=== PATIENT | male | born 1940 | race Caucasian/White ===

== ENCOUNTER 2016-12-30 09:16 | Emergency (ER) | payer OTHER ==
[~2016-12-30] VITALS: Ht 185.4 cm; Wt 87.7 kg
[~2016-12-30 09:16] MED LIST: ANT25 PO; ASPI325T39 PO; CITA10TA4 PO; LISI-729 PO; MULTTAB5 PO; OMEG-112 PO; ROSU5TAB PO
[2016-12-30 09:25] VITALS: TEMP 36.8; Ht 185.4 cm; Wt 87.7 kg
[2016-12-30 09:31] VITALS: O2SAT 98
--- NOTE | 2016-12-30 09:49 | EMERGENCY ROOM VISIT NOTE ---
History Report prepared by Zoay: Jonah Willoughby Under the Supervision of: Dr. Daniel Monroe M.D. First contact with patient: 09:33 Chief Complaint: CHEST PAIN Stated Complaint: CHEST PAINS/LEFT ARM PAIN Nursing Triage Summary: pt c/o left chest pain described as achy started at 0500 this am awoke him from sleep. radiates to left arm and jaw. now reports pain is okay. reports has chronic pain in left arm. pt reports he is left handed and worked in [employer] using that arm constantly. pain intensifies with exertion. denies any n/v. reports he moved his bowels 3 x this am reports this is normal though. has hx of prostate ca History of Present Illness The patient is a 76 year old male who presents to the Emergency Room with complaints of resolved left-sided chest pressure that started when he woke up at approximately 0500 this morning. The patient also has some pain in his left shoulder, which is similar to past musculoskeletal pain he has experienced. The patient is not currently feeling the chest pain which resolved on its own. He denies shortness of breath. The patient has a history of indigestion. He did not have anything to eat today. The patient denies any personal cardiac history but does have some family history. He had a negative stress test five years ago. As per his , the patient's blood pressure was 160/88 this morning. He does have a history of hypertension. He denies any history of diabetes. He was never a smoker. The patient has a history of prostate cancer. He moved here from [place] 13 years ago. Source of History: patient, spouse/significant other Onset: 0500 this morning Position: chest (left) Quality: pressure Timing: resolved Associated Symptoms: No SOB Review of Systems See HPI for pertinent positives & negatives. A total of 10 systems reviewed and were otherwise negative. Past Medical & Surgical Medical Problems: (1) HTN (hypertension) (2) Musculoskeletal chest pain Surgical Problems: (1) H/O colonoscopy (2) H/O prostatectomy Family History Cancer Hypertension Social History Smoking Status: Never Smoker Alcohol Use: occasionally Marital Status: Housing Status: lives with significant other Occupation Status: retired Current/Historical Medications Scheduled Aspirin (Aspirin Ec), 325 MG PO DAILY Citalopram Hydrobromide (Citalopram Hydrobromide), 10 MG PO DAILY Lisinopril (Zestril), 10 MG PO DAILY Multiple Vitamins W/ Minerals (Centrum), 1 TABLET PO DAILY [place]-6-Npnd Ethyl Esters ([place]-3), 1 CAP PO TID Rosuvastatin Calcium (Crestor), 5 MG PO DAILY Allergies Coded Allergies: Statins (Verified Allergy, Unknown, MUSCLE ACHES, 12/30/16) Physical Exam Vital Signs Date Time Temp Pulse Resp B/P Pulse Ox O2 Delivery O2 Flow Rate FiO2 12/30/16 11:23 80 16 145/90 96 Room Air 12/30/16 10:42 83 22 133/78 97 Room Air 12/30/16 10:18 77 12/30/16 09:31 98 Room Air 12/30/16 09:31 98 12/30/16 09:25 36.8 89 18 179/85 98 Room Air Physical Exam GENERAL: Patient is a healthy-appearing well-nourished HEAD: Normocephalic atraumatic EYES: Ocular movements intact pupils equal and react to light OROPHARYNX mucous membranes are moist no exudates present no erythema or edema present NECK: Supple no nuchal rigidity CHEST: Good equal expansion LUNGS: Clear and equal to auscultation CARDIAC: Normal S1 and S2 ABDOMEN: Soft nontender no guarding BACK: No CVA tenderness EXTREMITIES: No pain upon palpation normal muscle strength in all groups no clubbing cyanosis or edema NEURO: Patient is following commands is answering questions appropriately. Alert and oriented x3 Cranial Nerves 2-12 grossly intact Medical Decision & Procedures ER Provider Diagnostic Interpretation: X-ray results as stated below per interpretation by me and the radiologist: CHEST ONE VIEW PORTABLE CLINICAL HISTORY: Atypical chest pain COMPARISON STUDY: 02/25/2015 FINDINGS: The cardiac and mediastinal contours are normal. There is no evidence of focal pulmonary consolidation. There is no evidence of failure. No pleural effusions are visualized.[ There are patchy left basilar opacities, likely atelectatic. IMPRESSION: Nonspecific left basilar opacities, likely atelectatic. No evidence of lobar consolidation. No evidence of failure. Electronically signed by: Madhav Arreguin M.D. 12/30/2016 10:27 AM Dictated Date/Time: 12/30/2016 10:26 AM Laboratory Results 12/30/16 09:45 Red Blood Count 4.87, Mean Corpuscular Volume 89.7, Mean Corpuscular Hemoglobin 32.2, Mean Corpuscular Hemoglobin Concent 35.9, Mean Platelet Volume 9.6, Neutrophils (%) (Auto) 80.4, Lymphocytes (%) (Auto) 12.2, Monocytes (%) (Auto) 6.5, Eosinophils (%) (Auto) 0.3, Basophils (%) (Auto) 0.3, Neutrophils # (Auto) 6.35, Lymphocytes # (Auto) 0.96, Monocytes # (Auto) 0.51, Eosinophils # (Auto) 0.02, Basophils # (Auto) 0.02 12/30/16 09:45 Test 12/30/16 09:45 12/30/16 09:47 White Blood Count 7.88 K/uL (4.8-10.8) Red Blood Count 4.87 M/uL (4.7-6.1) Hemoglobin 15.7 g/dL (14.0-18.0) Hematocrit 43.7 % (42-52) Mean Corpuscular Volume 89.7 fL (80-100) Mean Corpuscular Hemoglobin 32.2 pg (25-34) Mean Corpuscular Hemoglobin Concent 35.9 g/dl (32-36) Platelet Count 235 K/uL (130-400) Mean Platelet Volume 9.6 fL (7.4-10.4) Neutrophils (%) (Auto) 80.4 % Lymphocytes (%) (Auto) 12.2 % Monocytes (%) (Auto) 6.5 % Eosinophils (%) (Auto) 0.3 % Basophils (%) (Auto) 0.3 % Neutrophils # (Auto) 6.35 K/uL (1.4-6.5) Lymphocytes # (Auto) 0.96 K/uL (1.2-3.4) Monocytes # (Auto) 0.51 K/uL (0.11-0.59) Eosinophils # (Auto) 0.02 K/uL (0-0.5) Basophils # (Auto) 0.02 K/uL (0-0.2) RDW Standard Deviation 43.4 fL (36.4-46.3) RDW Coefficient of Variation 13.2 % (11.5-14.5) Immature Granulocyte % (Auto) 0.3 % Immature Granulocyte # (Auto) 0.02 K/uL (0.00-0.02) Anion Gap 11.0 mmol/L (3-11) Est Creatinine Clear Calc Drug Dose 59.2 ml/min Estimated GFR () 67.7 Estimated GFR (Non- 58.4 BUN/Creatinine Ratio 19.8 (10-20) Calcium Level 9.4 mg/dl (8.5-10.1) Total Bilirubin 0.5 mg/dl (0.2-1) Direct Bilirubin < 0.1 mg/dl (0-0.2) Aspartate Amino Transf (AST/SGOT) 18 U/L (15-37) Alanine Aminotransferase (ALT/SGPT) 26 U/L (12-78) Alkaline Phosphatase 69 U/L (45-117) Total Creatine Kinase 190 U/L (39-308) Creatine Kinase MB 2.4 ng/ml (0.5-3.6) Creatine Kinase MB Ratio 1.3 (0-3.0) Troponin I < 0.015 ng/ml (0-0.045) Total Protein 7.4 gm/dl (6.4-8.2) Albumin 3.7 gm/dl (3.4-5.0) Lipase 142 U/L (73-393) Bedside Troponin I 0.000 ng/ml (0-0.045) Labs reviewed by ED physician. Medications Administered Medications (Trade) Dose Ordered Sig/Reuben Route Start Time Stop Time Status Last Admin Dose Admin Famotidine (Pepcid Tab) 20 mg NOW STAT PO 12/30/16 10:26 12/30/16 10:28 DC 12/30/16 10:39 20 MG Sucralfate (Carafate Tab) 1 gm NOW STAT PO 12/30/16 10:26 12/30/16 10:28 DC 12/30/16 10:39 1 GM Al Hydroxide/Mg Hydroxide (Maalox Susp) 30 ml STK-MED ONCE .ROUTE 12/30/16 10:35 12/30/16 10:37 DC 12/30/16 10:40 30 ML Lidocaine HCl (Viscous Lidocaine 2% Soln) 20 ml STK-MED ONCE .ROUTE 12/30/16 10:35 12/30/16 10:38 DC 12/30/16 10:41 20 ML ECG Indication: chest pain Rate (beats per minute): 87 Rhythm: normal sinus Findings: no acute ischemic change, no ectopy, other (normal EKG) ED Course 0934: Past medical records reviewed. The patient was evaluated in room A12b. A complete history and physical examination was performed. 1026: Sucralfate 1 gm PO, Famotidine 20 mg PO, GI Cocktail 24 ml PO. 1130: Reassessed the patient. Discussed the findings with him. He verbalized understanding and agreement of the treatment plan. The patient is ready for discharge. Medical Decision Differential diagnosis: Etiologies such as cardiac ischemia, aortic dissection, pulmonary embolism, pneumonia, pneumothorax, musculoskeletal, infections, pericarditis, myocarditis , esophageal rupture, gastrointestinal, as well as others were entertained. This is a 76-year-old male who presents emergency department complaining of chest pain. The patient's chest pain lasted for several hours today however he is pain-free upon arrival to the emergency department. The patient took 2 adult aspirin at home. Here in the emergency department the patient given a GI cocktail, Pepcid and Carafate. He has a normal CK-MB troponin as well as a normal EKG. I tried to get this patient in with cardiology to have a stress test performed however the patient has not been chest pain-free long enough. For this reason I strongly recommended that the patient be admitted to the hospital however he is adamantly refusing. He is asking to be discharged home for follow-up with cardiology. was in agreement with the treatment plan. Impression Primary Impression: Precordial chest pain Scribe Attestation The scribe's documentation has been prepared under my direction and personally reviewed by me in its entirety. I confirm that the note above accurately reflects all work, treatment, procedures, and medical decision making performed by me. Departure Information Dispostion Home / Self-Care Referrals Adalid Barahona III, CRNP (PCP) Forms HOME CARE DOCUMENTATION FORM, IMPORTANT VISIT INFORMATION, School Instructions, Work Instructions Patient Instructions Chest Pain - [facility], [facility] Additional Instructions Follow up with DR An's office You have been examined and treated today on an emergency basis only. This is not a substitute for, or an effort to provide, complete comprehensive medical care. It is impossible to recognize and treat all injuries or illnesses in a single emergency department visit. It is therefore important that you follow up closely with Dr Barahona. Call as soon as possible for an appointment. Thank you for your time and consideration. I look forward to speaking with you again soon. Please don't hesitate to call us if you have any questions.
[2016-12-30 10:13] LABS: BASO % 0.3 %; BASO ABS # 0.02 K/uL (0-0.2); COMPLETE YES; EOS % 0.3 %; HEMATOCRIT 43.7 % (42-52); IG% 0.3 %; LYMPH % 12.2 %; LYMPH ABS # 0.96 K/uL (1.2-3.4); MEAN CELL VOLUME 89.7 fL (80-100); MEAN CORPUSCULAR HEMOGLOBIN 32.2 pg (25-34); MEAN CORPUSCULAR HGB CONC 35.9 g/dl (32-36); MEAN PLATELET VOLUME 9.6 fL (7.4-10.4); MONO % 6.5 %; NEUT % 80.4 %; PLATELET COUNT 235 K/uL (130-400); RED BLOOD COUNT 4.87 M/uL (4.7-6.1); WHITE BLOOD COUNT 7.88 K/uL (4.8-10.8)
[2016-12-30] MEDS ORDERED: SUCRALFATE 1 GM TAB PO STA (10:26)
[2016-12-30] MEDS ORDERED: FAMOTIDINE 20 MG TAB PO STA (10:26)
[2016-12-30] MEDS ORDERED: GI COCKTAIL PO STA (10:26)
--- NOTE | 2016-12-30 10:28 | DIAGNOSTIC IMAGING REPORT ---
CHEST ONE VIEW PORTABLE CLINICAL HISTORY: Atypical chest pain COMPARISON STUDY: 02/25/2015 FINDINGS: The cardiac and mediastinal contours are normal. There is no evidence of focal pulmonary consolidation. There is no evidence of failure. No pleural effusions are visualized.[ There are patchy left basilar opacities, likely atelectatic. IMPRESSION: Nonspecific left basilar opacities, likely atelectatic. No evidence of lobar consolidation. No evidence of failure. Electronically signed by: Madhav Arreguin M.D. 12/30/2016 10:27 AM Dictated Date/Time: 12/30/2016 10:26 AM
[2016-12-30] MEDS ORDERED: LIDOCAINE HCL 2% VISC SOLN 20 ML UDC ONE (10:35)
[2016-12-30] MEDS ORDERED: ALUMINUM/MAGNESIUM SUSP 30 ML UDC ONE (10:35)
[2016-12-30 10:36] LABS: ALT/SGPT 26 U/L (12-78); AST/SGOT 18 U/L (15-37); BLOOD UREA NITROGEN 24 mg/dl (7-18); BUN/CREATININE RATIO 19.8 (10-20); CALCIUM 9.4 mg/dl (8.5-10.1); CARBON DIOXIDE 25 mmol/L (21-32); CHLORIDE 105 mmol/L (98-107); GLUCOSE 119 mg/dl (70-99); POTASSIUM 4.2 mmol/L (3.5-5.1); SODIUM 141 mmol/L (136-145)
[2016-12-30 10:40] LABS: ALKALINE PHOSPHATASE 69 U/L (45-117); CKMB/CK RATIO 1.3 (0-3.0)
[2016-12-30 11:23] VITALS: BP 145/90; PULSE 80; O2SAT 96
[2017-05-06] MEDS ORDERED: ASPI-560 PO (04:31)
[2017-05-06] MEDS ORDERED: CITA10TA4 PO (04:34)
[2017-05-06] MEDS ORDERED: LUTE15CA PO (04:36)
[2017-05-06] MEDS ORDERED: HYDR-5688 PO ×2 (04:46→20:04)
[2017-05-06] MEDS ORDERED: ONDA4TAB10 SL ×2 (04:46→20:04)
[2017-05-08] MEDS ORDERED: CIPR1TAB11 PO (10:03)
[2017-07-05] MEDS ORDERED: CLOT1PAK (07:10)
[2017-07-05] MEDS ORDERED: LISI-461 PO (07:10)
[2017-07-05] MEDS ORDERED: APIX1TAB3 PO (07:10)
[2017-07-20] MEDS ORDERED: METO25TA56 PO (15:24)
== END 2016-12-30 11:41 | disposition home or self-care (01) ==
LOC: C.EDB 09:18 → C.EDA 11:41
DX: R07.2 Precordial pain (principal); I10 Essential (primary) hypertension; Z85.46 Personal history of malignant neoplasm of prostate; Z90.79 Acquired absence of other genital organ(s); Z98.890 Other specified postprocedural states; Z79.82 Long term (current) use of aspirin; Z79.899 Other long term (current) drug therapy

== ENCOUNTER 2017-05-06 02:40 | Emergency (ER) | payer OTHER ==
[~2017-05-06 02:40] MED LIST changes: -ANT25 PO
[2017-05-06 04:12] LABS: ALKALINE PHOSPHATASE 64 U/L (45-117); ALT/SGPT 33 U/L (12-78); AST/SGOT 21 U/L (15-37); BLOOD UREA NITROGEN 33 mg/dl (7-18); BUN/CREATININE RATIO 21.7 (10-20); CALCIUM 9.3 mg/dl (8.5-10.1); CARBON DIOXIDE 28 mmol/L (21-32); CHLORIDE 105 mmol/L (98-107); GLUCOSE 120 mg/dl (70-99); POTASSIUM 4.1 mmol/L (3.5-5.1); SODIUM 140 mmol/L (136-145)
[2017-05-06 04:22] LABS: URINE APPEARANCE CLEAR (CLEAR); URINE BILIRUBIN NEG (NEG); URINE COLOR YELLOW; URINE EPITHELIAL CELL AUTO 0-5 /lpf (0-5); URINE NITRITE NEG (NEG); URINE SPECIFIC GRAVITY 1.021 (1.000-1.030); UROBILINOGEN NEG (NEG); ZZUR CULT IF INDIC CLEAN CATCH NO
[2017-05-06 04:23] LABS: MANUAL MICROSCOPIC REQUIRED? NO; REVIEW REQ? NO
[2017-05-06] MEDS ORDERED: ASPI-428 PO (04:26)
--- NOTE | 2017-05-06 04:26 | EMERGENCY ROOM VISIT NOTE ---
History Report prepared by Zoya: Marielos Stewart Under the Supervision of: Dr. Edmundo Pena M.D. First contact with patient: 03:45 Chief Complaint: FLANK PAIN Stated Complaint: SIDE PAIN History of Present Illness The patient is a 76 year old male who presents to the Emergency Room with complaints of persistent left flank pain that began several hours ago. He currently rates his discomfort as a 10/10 in severity. The patient states that he has had pain like this in the past, but notes that it was nearly 20 years ago. He states that since the pain began, he developed nausea, but denies any vomiting. The patient states that he has been out in the sun more recently. He states that he has a history of difficulty urination, but notes that he follows with urology and has a history of a prostatectomy. The patient denies any leg swelling or rash. Source of History: patient Onset: several hours ago Position: other (left flank) Symptom Intensity: 10/10 Timing: other (persistent) Associated Symptoms: + nausea, + urinary symptoms (difficulty urinating), No vomiting, No rash Review of Systems See HPI for pertinent positives & negatives. A total of 10 systems reviewed and were otherwise negative. Past Medical & Surgical Medical Problems: (1) HTN (hypertension) (2) Musculoskeletal chest pain Surgical Problems: (1) H/O colonoscopy (2) H/O prostatectomy Family History Cancer Hypertension Social History Smoking Status: Never Smoker Alcohol Use: occasionally Marital Status: Housing Status: lives with significant other Occupation Status: retired Current/Historical Medications Scheduled Aspirin (Ecotrin), 325 MG PO DAILY Citalopram Hydrobromide (Citalopram Hydrobromide), 5 MG PO DAILY Lisinopril (Zestril), 10 MG PO DAILY Lutein-Zeaxanthin (Lutein), 1 CAP PO DAILY Multiple Vitamins W/ Minerals (Centrum), 1 TABLET PO DAILY [place]-9-Vczp Ethyl Esters ([place]-3), 1 CAP PO DAILY Ondasetron Odt (Zofran Odt), 4 MG SL Q6H Rosuvastatin Calcium (Crestor), 5 MG PO [id number] Scheduled PRN Hydrocodone/Acetaminophen 5MG/325MG ([place] 5MG/325MG), 1-2 TABLET PO Q6H PRN for Pain Allergies Coded Allergies: Statins (Verified Allergy, Unknown, MUSCLE ACHES, 12/30/16) Physical Exam Vital Signs Date Time Temp Pulse Resp B/P (MAP) Pulse Ox O2 Delivery O2 Flow Rate FiO2 05/06/17 05:15 84 20 148/80 98 05/06/17 04:02 97 20 143/100 98 Physical Exam GENERAL: Patient is uncomfortable appearing and in mild distress. HEENT: No acute trauma, normocephalic atraumatic, mucous membranes moist, no nasal congestion, no scleral icterus. NECK: No stridor, no adenopathy, no meningismus, trachea is midline. LUNGS: No dyspnea. Clear to auscultation and equal bilaterally. No wheeze, no rhonchi. HEART: Regular rate and rhythm. No murmurs, rubs, gallops appreciated. ABDOMEN: Soft, nontender, bowel sounds positive, no masses appreciated, no peritonitis. BACK: No midline tenderness, no CVA tenderness EXTREMITIES: Normal motion all extremities, no cyanosis, no edema. NEUROLOGIC: Alert and oriented, no acute motor or sensory deficits, no focal weakness, cranial nerves grossly intact. SKIN: No rash, no jaundice, no diaphoresis. Medical Decision & Procedures ER Provider Diagnostic Interpretation: Radiology results and stated below per my review and radiologist interpretation: CT ABDOMEN AND PELVIS: Impression: There are two calculi seen within the distal left ureter both measure up to 2 mm (2-163, 160), which causes mild hydroureteronephrosis. There are additional non-obstructing calculi within the left kidney. Additional findings: The visualized lower thorax demonstrates atelectasis and/or scarring. The live, gallbladder, spleen, pancreas, and right adrenal gland are unremarkable. Left adrenal gland nodule measuring up to 2.5 cm likely representing a lipid right adenoma. The appendix is unremarkable. Noninflamed colonic diverticulosis. No acute osseous abnormality. Radiologist: Tin Valadez MD Study ready at 7310 and initial results transmitted at 3675 Laboratory Results 05/06/17 03:10 Red Blood Count 5.24, Mean Corpuscular Volume 91.8, Mean Corpuscular Hemoglobin 31.3, Mean Corpuscular Hemoglobin Concent 34.1, Mean Platelet Volume 9.8, Neutrophils (%) (Auto) 77.4, Lymphocytes (%) (Auto) 10.3, Monocytes (%) (Auto) 11.0, Eosinophils (%) (Auto) 0.7, Basophils (%) (Auto) 0.3, Neutrophils # (Auto ) 8.44, Lymphocytes # (Auto) 1.12, Monocytes # (Auto) 1.20, Eosinophils # (Auto ) 0.08, Basophils # (Auto) 0.03 05/06/17 03:10 Test 05/06/17 03:10 White Blood Count 10.90 K/uL (4.8-10.8) Red Blood Count 5.24 M/uL (4.7-6.1) Hemoglobin 16.4 g/dL (14.0-18.0) Hematocrit 48.1 % (42-52) Mean Corpuscular Volume 91.8 fL (80-100) Mean Corpuscular Hemoglobin 31.3 pg (25-34) Mean Corpuscular Hemoglobin Concent 34.1 g/dl (32-36) Platelet Count 243 K/uL (130-400) Mean Platelet Volume 9.8 fL (7.4-10.4) Neutrophils (%) (Auto) 77.4 % Lymphocytes (%) (Auto) 10.3 % Monocytes (%) (Auto) 11.0 % Eosinophils (%) (Auto) 0.7 % Basophils (%) (Auto) 0.3 % Neutrophils # (Auto) 8.44 K/uL (1.4-6.5) Lymphocytes # (Auto) 1.12 K/uL (1.2-3.4) Monocytes # (Auto) 1.20 K/uL (0.11-0.59) Eosinophils # (Auto) 0.08 K/uL (0-0.5) Basophils # (Auto) 0.03 K/uL (0-0.2) RDW Standard Deviation 45.4 fL (36.4-46.3) RDW Coefficient of Variation 13.6 % (11.5-14.5) Immature Granulocyte % (Auto) 0.3 % Immature Granulocyte # (Auto) 0.03 K/uL (0.00-0.02) Urine Color YELLOW Urine Appearance CLEAR (CLEAR) Urine pH 5.0 (4.5-7.5) Urine Specific [place] 1.021 (1.000-1.030) Urine Protein NEG (NEG) Urine Glucose (UA) NEG (NEG) Urine Ketones NEG (NEG) Urine Occult Blood 2+ (NEG) Urine Nitrite NEG (NEG) Urine Bilirubin NEG (NEG) Urine Urobilinogen NEG (NEG) Urine Leukocyte Esterase NEG (NEG) Urine WBC (Auto) 1-5 /hpf (0-5) Urine RBC (Auto) 0-4 /hpf (0-4) Urine Hyaline Casts (Auto) 0 /lpf (0-5) Urine Epithelial Cells (Auto) 0-5 /lpf (0-5) Urine Bacteria (Auto) NEG (NEG) Anion Gap 7.0 mmol/L (3-11) Estimated GFR () 51.7 Estimated GFR (Non- 44.6 BUN/Creatinine Ratio 21.7 (10-20) Calcium Level 9.3 mg/dl (8.5-10.1) Total Bilirubin 0.4 mg/dl (0.2-1) Direct Bilirubin 0.1 mg/dl (0-0.2) Aspartate Amino Transf (AST/SGOT) 21 U/L (15-37) Alanine Aminotransferase (ALT/SGPT) 33 U/L (12-78) Alkaline Phosphatase 64 U/L (45-117) Total Protein 8.0 gm/dl (6.4-8.2) Albumin 4.3 gm/dl (3.4-5.0) Lipase 218 U/L (73-393) Laboratory results as reviewed by me. Medications Administered Medications (Trade) Dose Ordered Sig/Reuben Route Start Time Stop Time Status Last Admin Dose Admin Tamsulosin HCl (Flomax Cap) 0.4 mg NOW ONCE PO 05/06/17 04:45 05/06/17 04:46 DC 05/06/17 04:45 0.4 MG Acetaminophen/ Hydrocodone Bitart ([place] 5/325mg Home Pack) 1 homepack UD ONCE PO 05/06/17 04:45 05/06/17 04:46 DC 05/06/17 04:45 1 HOMEPACK Ondansetron HCl (ZOFRAN ODT 4MG Home Pack) 1 homepack UD ONCE PO 05/06/17 04:45 05/06/17 04:46 DC 05/06/17 04:45 1 HOMEPACK ED Course 0256: The patient was evaluated in room B12B. A complete history and physical exam was performed. 0435: I reevaluated the patient and he is resting comfortably. He states that he previously did well with [place], but did not do well with Percocet. He states that he will follow up with his urologist regarding his kidney stone and his PCP regarding his mildly elevated creatinine. I discussed all the exam findings with him and I discussed the treatment plan. He verbalized complete understanding and agreement. He is ready to go home. 0445: Ordered Ondansetron HCl 1 homepack PO, [place] 5/325 mg Home pack 1 homepack PO, Flomax Cap 0.4 mg PO. Medical Decision Differential: Renal Colic, Pyelonephritis, Hydronephrosis, Appendicitis, Diverticulitis, Retroperitoneal Bleed/Infection, Aortic Pathology, MSK, Neurologic Pathology, amongst other pathologies entertained. Medication Reconciliation: I attest that I have personally reviewed the patient 's current medication list. Blood pressure screening: Patient was found to have an elevated blood pressure and was referred to their primary doctor for recheck and further treatment. Pleasant 76 yr old male arrives with left flank pain. Moderate distress though will hold on pain meds as wishes to drive home. Cr mild bump at 1.5 though likely combo dehydration and possibly some from hydro. Fluids given and patient with CT abdo/pel wo con. Two 2mm distal left ureteral stones with mild hydro. Blood in urine though no evidence infection. Feeling well, stable and comfortable with treating this at home. He already follows closely with urologist. He is in no distress and is breathing comfortably. Will treat with [place] as this has previously worked for him. Reviewed need for follow up with PCP re Cr and HTN. Reviewed symptoms requiring RTED. Impression Primary Impression: Ureteral calculus, left Additional Impression: Dehydration Scribe Attestation The scribe's documentation has been prepared under my direction and personally reviewed by me in its entirety. I confirm that the note above accurately reflects all work, treatment, procedures, and medical decision making performed by me. Departure Information Dispostion Home / Self-Care Prescriptions Ondasetron Odt (ZOFRAN ODT) 4 Mg Tab 4 MG SL Q6H for Nausea, #15 TAB Prov: Edmundo Pena M.D. 05/06/17 Hydrocodone/Acetaminophen 5MG/325MG ([place] 5MG/325MG) Tab 1-2 TABLET PO Q6H Y for Pain, #20 TAB Prov: Edmundo Pena M.D. 05/06/17 Referrals Adalid Barahona III, CRNP (PCP) Forms HOME CARE DOCUMENTATION FORM, IMPORTANT VISIT INFORMATION Patient Instructions ED Stone Renal W Colic, My [facility] Additional Instructions Please follow up with your Urologist for further evaluation of stone. Please follow up with your PCP for repeat Kidney function testing. You have received a narcotic pain medication prescription. These medications may cause drowsiness and should not be used with other sedative medications. Do not drive, drink alcohol, perform dangerous activities, nor make important decisions after taking these medications. termite control servicer use or inappropriate use may lead to addiction. Your blood pressure was elevated during this visit. This is quite common in many people who are being evaluated in the Emergency Department for many reasons. However, it is important that you have your Primary Care Provider recheck your blood pressure and discuss whether treatment will be needed. group home elevated blood pressure can lead to strokes, heart attacks, kidney failure amongst other medical issues. If you develop severe headaches, chest pain, weakness in arms or legs, or other concerning symptoms call 911. Problem Qualifiers
[2017-05-06 04:27] LABS: BASO % 0.3 %; BASO ABS # 0.03 K/uL (0-0.2); COMPLETE YES; EOS % 0.7 %; HEMATOCRIT 48.1 % (42-52); IG% 0.3 %; LYMPH % 10.3 %; LYMPH ABS # 1.12 K/uL (1.2-3.4); MEAN CELL VOLUME 91.8 fL (80-100); MEAN CORPUSCULAR HEMOGLOBIN 31.3 pg (25-34); MEAN CORPUSCULAR HGB CONC 34.1 g/dl (32-36); MEAN PLATELET VOLUME 9.8 fL (7.4-10.4); NEUT % 77.4 %; PLATELET COUNT 243 K/uL (130-400); RED BLOOD COUNT 5.24 M/uL (4.7-6.1)
[2017-05-06] MEDS ORDERED: ASPI-560 PO ×2 (04:31)
[2017-05-06] MEDS ORDERED: CITA10TA4 PO ×2 (04:34)
[2017-05-06] MEDS ORDERED: LUTE15CA PO ×2 (04:36)
[2017-05-06] MEDS ORDERED: NORCO 5/325MG HOME PACK PO ONE (04:45)
[2017-05-06] MEDS ORDERED: TAMSULOSIN HCL 0.4 MG CAP PO ONE (04:45)
[2017-05-06] MEDS ORDERED: ONDANSETRON HOME PACK 4MG OD TAB PO ONE (04:45)
[2017-05-06] MEDS ORDERED: ONDA4TAB10 SL ×3 (04:46→20:04)
[2017-05-06] MEDS ORDERED: HYDR-5688 PO ×3 (04:46→20:04)
[2017-05-06 05:15] VITALS: BP 148/80; PULSE 84; O2SAT 98
--- NOTE | 2017-05-06 07:35 | DIAGNOSTIC IMAGING REPORT ---
ABDOMEN AND PELVIS CT WITHOUT CONTRAST CT DOSE: HISTORY: Flank pain PAIN AT LEFT FLANK TECHNIQUE: Multiaxial CT images of the abdomen and pelvis were performed without the use of intravenous and oral contrast according to the standard department stone protocol. COMPARISON STUDY: None. FINDINGS: Lung bases are clear. Liver spleen and pancreas appear unremarkable. There are several small renal cortical and peripelvic cysts bilaterally. There is mild left hydroureteronephrosis. There are 2 partially obstructing calculi distal aspect left ureter. These measure 2 mm respectively. Bladder is midline. There are no contained bladder calcifications. Bowel pattern overall is nonobstructive. IMPRESSION: 2 small calcifications distal left ureter with mild left hydroureteronephrosis. Electronically signed by: Griffin Melendez M.D. 05/06/2017 7:34 AM Dictated Date/Time: 05/06/2017 7:31 AM
[2017-05-08] MEDS ORDERED: CIPR1TAB11 PO ×2 (10:03)
[2017-07-05] MEDS ORDERED: CLOT1PAK (07:10)
[2017-07-05] MEDS ORDERED: APIX1TAB3 PO (07:10)
[2017-07-05] MEDS ORDERED: LISI-461 PO (07:10)
[2017-07-20] MEDS ORDERED: METO25TA56 PO (15:24)
== END 2017-05-06 05:16 | disposition home or self-care (01) ==
LOC: C.EDB 03:35
DX: N20.1 Calculus of ureter (principal); E86.0 Dehydration; I10 Essential (primary) hypertension; Z90.79 Acquired absence of other genital organ(s); Z79.82 Long term (current) use of aspirin; Z82.49 Family history of ischemic heart disease and other diseases of the circulatory system

== ENCOUNTER 2017-05-06 19:33 | Inpatient (IN) | payer OTHER ==
[~2017-05-06] VITALS: Ht 185.4 cm; Wt 90.1 kg
[~2017-05-06 19:33] MED LIST changes: +ASPI-428 PO; +ASPI-560 PO; +HYDR-5688 PO; +LUTE15CA PO; +ONDA4TAB10 SL
[2017-05-06] MEDS ORDERED: SODIUM CHLORIDE 0.9% 1000ML 1,000 ML IV STA (20:00)
[2017-05-06] MEDS ORDERED: ONDANSETRON INJ 2 MG/ML 2 ML VIAL IV STA (20:02)
[2017-05-06] MEDS ORDERED: MoRPHine SULFATE 4 MG/ML 1 ML CARP\\VIAL IV STA (20:02)
[2017-05-06] MEDS ORDERED: HYDR-5688 PO ×2 (20:04)
[2017-05-06] MEDS ORDERED: ONDA4TAB10 SL ×2 (20:04)
--- NOTE | 2017-05-06 20:05 | EMERGENCY ROOM VISIT NOTE ---
History First contact with patient: 19:51 Chief Complaint: KIDNEY STONE Stated Complaint: CARLA STONE History of Present Illness The patient is a 76 year old male who presents to the Emergency Room with complaints of left flank pain. The patient was seen here early this morning and diagnosed with to 2 mm left distal ureteral kidney stones. The patient has been taking [place] at home without any significant relief. The patient presents with persistent and worsening pain. The patient states he is also very nauseated. He states he had a temperature of 99.6F around 6 PM. He took [place] around 6:30 PM. He denies any pain in his chest or trouble breathing. He denies any urinary symptoms. The patient has seen Dr. Domingo Keys in the past. He contacted the office and was told to watch for fever. He has an appointment in the middle of May. Review of Systems A 10 system review of systems was completed with positives and pertinent negatives listed in the HPI. Past Medical/Surgical History Medical Problems: (1) HTN (hypertension) (2) Hydronephrosis, left (3) Left ureteral calculus (4) Musculoskeletal chest pain Surgical Problems: (1) H/O colonoscopy (2) H/O prostatectomy Family History Cancer Hypertension Social History Smoking Status: Never Smoker Alcohol Use: occasionally Marital Status: Housing Status: lives with significant other Occupation Status: retired Current/Historical Medications Scheduled Aspirin (Ecotrin), 325 MG PO DAILY Citalopram Hydrobromide (Citalopram Hydrobromide), 5 MG PO DAILY Lisinopril (Zestril), 10 MG PO DAILY Lutein-Zeaxanthin (Lutein), 1 CAP PO DAILY Multiple Vitamins W/ Minerals (Centrum), 1 TABLET PO DAILY Vxago-7-Msan Ethyl Esters ([place]-3), 1 CAP PO DAILY Rosuvastatin Calcium (Crestor), 5 MG PO 3XWK Scheduled PRN Hydrocodone/Acetaminophen 5MG/325MG ([place] 5MG/325MG), 1-2 TABLET PO Q6H PRN for Pain Ondasetron Odt (Zofran Odt), 4 MG SL Q6H PRN for Nausea Allergies Coded Allergies: Statins (Verified Allergy, Unknown, MUSCLE ACHES, 05/06/17) Physical Exam Vital Signs Date Time Temp Pulse Resp B/P (MAP) Pulse Ox O2 Delivery O2 Flow Rate FiO2 05/06/17 22:15 87 18 109/63 96 Room Air 05/06/17 20:40 90 18 110/67 96 Room Air 05/06/17 19:37 36.6 108 20 124/67 95 Room Air Physical Exam VITALS: Vitals are noted on the nurse's note and reviewed by myself. Vital signs stable. The patient is afebrile. The heart rate is 108 bpm. GENERAL: This is a 76-year-old male, in no acute distress, nondiaphoretic, well- developed well-nourished. SKIN: The skin was without rashes, erythema, edema, or bruising. There is no tenting of the skin. Capillary reflex less than 2 seconds. HEAD: Normocephalic atraumatic. EARS: External ears are normal in appearance. EYES: Pupils equal round and reactive to light and accommodation. Conjunctivae without injection, sclerae without icterus. Extraocular movements intact. NOSE: Patent, turbinates without inflammation or discharge. MOUTH: Mucous membranes moist. Tonsils are not enlarged. Pharynx without erythema or exudate. Uvula midline. Airway patent. Tongue does not deviate. NECK: Supple without nuchal rigidity. No lymphadenopathy. No thyromegaly. Cervical spine is nontender. No JVD. HEART: Regular rate and rhythm without murmurs gallops or rubs. LUNGS: Clear to auscultation bilaterally without wheezes, rales or rhonchi. No retractions or accessory muscle use. ABDOMEN: Positive bowel sounds x 4. Soft, nontender, without masses or organomegaly. MUSCULOSKELETAL: No muscle atrophy, erythema, or edema noted. Full range of motion in all extremities. Normal gait. Strength 5/5 throughout. NEURO: Patient was alert and oriented to person place and time. No focal neurological deficits. Medical Decision & Procedures ER Provider Diagnostic Interpretation: KUB CLINICAL HISTORY: Kidney stone. Flank pain. COMPARISON STUDY: CT of the abdomen and pelvis May 06, 2017 3:32 AM. FINDINGS: No urinary calculi are identified on this examination. The small distal left ureteral calculi shown on CT from earlier today are not visualized on this exam. A right pelvic calcification reflects a phlebolith. There is no evidence for a bowel obstruction. There is a moderate amount of stool. There are pelvic surgical clips. IMPRESSION: 1. No urinary calculi identified. The small distal left ureteral calculi shown on CT of earlier today are not visualized on this exam, possibly due to their small size. 2. No evidence of bowel obstruction. 3. Moderate to large amount of stool within the colon. Laboratory Results 05/06/17 19:45 Red Blood Count 4.63, Mean Corpuscular Volume 90.5, Mean Corpuscular Hemoglobin 30.2, Mean Corpuscular Hemoglobin Concent 33.4, Mean Platelet Volume 9.9, Neutrophils (%) (Auto) 85.4, Lymphocytes (%) (Auto) 6.8, Monocytes (%) (Auto) 7.4, Eosinophils (%) (Auto) 0.1, Basophils (%) (Auto) 0.1, Neutrophils # (Auto) 11.47, Lymphocytes # (Auto) 0.91, Monocytes # (Auto) 1.00, Eosinophils # (Auto) 0.01, Basophils # (Auto) 0.01 05/06/17 19:45 Test 05/06/17 19:45 05/06/17 20:40 White Blood Count 13.43 K/uL (4.8-10.8) Red Blood Count 4.63 M/uL (4.7-6.1) Hemoglobin 14.0 g/dL (14.0-18.0) Hematocrit 41.9 % (42-52) Mean Corpuscular Volume 90.5 fL (80-100) Mean Corpuscular Hemoglobin 30.2 pg (25-34) Mean Corpuscular Hemoglobin Concent 33.4 g/dl (32-36) Platelet Count 253 K/uL (130-400) Mean Platelet Volume 9.9 fL (7.4-10.4) Neutrophils (%) (Auto) 85.4 % Lymphocytes (%) (Auto) 6.8 % Monocytes (%) (Auto) 7.4 % Eosinophils (%) (Auto) 0.1 % Basophils (%) (Auto) 0.1 % Neutrophils # (Auto) 11.47 K/uL (1.4-6.5) Lymphocytes # (Auto) 0.91 K/uL (1.2-3.4) Monocytes # (Auto) 1.00 K/uL (0.11-0.59) Eosinophils # (Auto) 0.01 K/uL (0-0.5) Basophils # (Auto) 0.01 K/uL (0-0.2) RDW Standard Deviation 43.9 fL (36.4-46.3) RDW Coefficient of Variation 13.5 % (11.5-14.5) Immature Granulocyte % (Auto) 0.2 % Immature Granulocyte # (Auto) 0.03 K/uL (0.00-0.02) Anion Gap 8.0 mmol/L (3-11) Est Creatinine Clear Calc Drug Dose 50.7 ml/min Estimated GFR () 56.2 Estimated GFR (Non- 48.5 BUN/Creatinine Ratio 16.0 (10-20) Calcium Level 8.9 mg/dl (8.5-10.1) Total Bilirubin 1.0 mg/dl (0.2-1) Aspartate Amino Transf (AST/SGOT) 17 U/L (15-37) Alanine Aminotransferase (ALT/SGPT) 24 U/L (12-78) Alkaline Phosphatase 58 U/L (45-117) Total Protein 6.7 gm/dl (6.4-8.2) Albumin 3.5 gm/dl (3.4-5.0) Globulin 3.2 gm/dl (2.5-4.0) Albumin/Globulin Ratio 1.1 (0.9-2) Lipase 143 U/L (73-393) Urine Color YELLOW Urine Appearance CLEAR (CLEAR) Urine pH 5.0 (4.5-7.5) Urine Specific [place] 1.027 (1.000-1.030) Urine Protein NEG (NEG) Urine Glucose (UA) NEG (NEG) Urine Ketones 1+ (NEG) Urine Occult Blood 2+ (NEG) Urine Nitrite NEG (NEG) Urine Bilirubin NEG (NEG) Urine Urobilinogen NEG (NEG) Urine Leukocyte Esterase NEG (NEG) Urine WBC (Auto) 1-5 /hpf (0-5) Urine RBC (Auto) 10-30 /hpf (0-4) Urine Hyaline Casts (Auto) 1-5 /lpf (0-5) Urine Epithelial Cells (Auto) 5-10 /lpf (0-5) Urine Bacteria (Auto) NEG (NEG) Medications Administered Medications (Trade) Dose Ordered Sig/Reuben Route Start Time Stop Time Status Last Admin Dose Admin Sodium Chloride 1,000 ml @ 999 mls/hr Q1H1M STAT IV 05/06/17 20:00 05/06/17 21:00 DC 05/06/17 20:42 999 MLS/HR Ondansetron HCl (Zofran Inj) 4 mg NOW STAT IV 05/06/17 20:02 05/06/17 20:03 DC 05/06/17 20:42 4 MG Morphine Sulfate (MoRPHine SULFATE INJ) 4 mg NOW STAT IV 05/06/17 20:02 05/06/17 20:03 DC 05/06/17 20:42 4 MG ED Course The patient was seen and examined. Previous visits were reviewed. The patient does not have fever. He does have a leukocytosis of 13.43. He does not have any significant electrolyte abnormality. Lipase is not elevated. Urinalysis reveals hematuria and contamination. The patient was hydrated with normal saline he was given 4 mg IV Zofran and 4 mg IV morphine with improvement in his pain KUB does not reveal any obvious stone The patient presents to the emergency department with intractable pain secondary to a kidney stone. He was seen earlier this morning. The pain medication has not been alleviating his pain. He contacted urology but cannot be seen until the middle of May. The patient would benefit from further evaluation and management in the hospital. The case was discussed with the hospitalist service and they will evaluate the patient. The patient was also seen and examined by who agrees with the assessment and treatment plan. Medical Decision DIFFERENTIAL DIAGNOSIS: Hepatitis, cholecystitis, cholangitis, biliary colic, pancreatitis, pneumonia, subdiaphragmatic abscess, appendicitis, inguinal hernia , nephrolithiasis, inflammatory bowel disease, mesenteric adenitis, peptic ulcer disease, GERD, gastritis, pancreatitis, myocardial infarction, pericarditis, ruptured aortic aneurysm, appendicitis, gastroenteritis, bowel obstruction, splenic infarct, diverticulitis, mesenteric ischemia, metabolic, peritonitis, among others. Impression Primary Impression: Left ureteral calculus Additional Impression: Intractable pain Departure Information Dispostion Admitted as an inpatient Referrals Adalid Barahona III, CRNP (PCP) Patient Instructions [facility] Problem Qualifiers
[2017-05-06 20:31] LABS: BASO % 0.1 %; BASO ABS # 0.01 K/uL (0-0.2); COMPLETE YES; EOS % 0.1 %; HEMATOCRIT 41.9 % (42-52); IG% 0.2 %; LYMPH % 6.8 %; LYMPH ABS # 0.91 K/uL (1.2-3.4); MEAN CELL VOLUME 90.5 fL (80-100); MEAN CORPUSCULAR HEMOGLOBIN 30.2 pg (25-34); MEAN CORPUSCULAR HGB CONC 33.4 g/dl (32-36); MEAN PLATELET VOLUME 9.9 fL (7.4-10.4); MONO % 7.4 %; NEUT % 85.4 %; PLATELET COUNT 253 K/uL (130-400); RED BLOOD COUNT 4.63 M/uL (4.7-6.1); WHITE BLOOD COUNT 13.43 K/uL (4.8-10.8)
[2017-05-06 20:49] LABS: CALCIUM 8.9 mg/dl (8.5-10.1); CREATININE 1.4 mg/dl (0.60-1.40); POTASSIUM 4.2 mmol/L (3.5-5.1)
[2017-05-06 20:53] LABS: ALB/GLOB RATIO 1.1 (0.9-2)
[2017-05-06 21:13] LABS: URINE APPEARANCE CLEAR (CLEAR); URINE BILIRUBIN NEG (NEG); URINE COLOR YELLOW; URINE NITRITE NEG (NEG); URINE SPECIFIC GRAVITY 1.027 (1.000-1.030); UROBILINOGEN NEG (NEG); ZZUR CULT IF INDIC CLEAN CATCH NO
[2017-05-06 21:14] LABS: MANUAL MICROSCOPIC REQUIRED? NO; REVIEW REQ? NO
--- NOTE | 2017-05-06 21:20 | DIAGNOSTIC IMAGING REPORT ---
KUB CLINICAL HISTORY: Kidney stone. Flank pain. COMPARISON STUDY: CT of the abdomen and pelvis May 06, 2017 3:32 AM. FINDINGS: No urinary calculi are identified on this examination. The small distal left ureteral calculi shown on CT from earlier today are not visualized on this exam. A right pelvic calcification reflects a phlebolith. There is no evidence for a bowel obstruction. There is a moderate amount of stool. There are pelvic surgical clips. IMPRESSION: 1. No urinary calculi identified. The small distal left ureteral calculi shown on CT of earlier today are not visualized on this exam, possibly due to their small size. 2. No evidence of bowel obstruction. 3. Moderate to large amount of stool within the colon. Electronically signed by: Jayy Lim M.D. 05/06/2017 9:19 PM Dictated Date/Time: 05/06/2017 9:16 PM
--- NOTE | 2017-05-06 21:31 | EMERGENCY ROOM VISIT NOTE ---
ED Visit Note First contact with patient: 19:51 The patient was seen and examined with Guerda Torres PA-C. I agree with the history, physical and findings. Please see the note for disposition and details.
[2017-05-06] MEDS ORDERED: ACETAMINOPHEN 325 MG TAB PO PRN (22:30)
[2017-05-06] MEDS ORDERED: CIPROFLOXACIN 400MG / 200ML D5W IV SCH (22:31)
[2017-05-06] MEDS ORDERED: MoRPHine SULFATE 2 MG/ML CARP IV PRN (22:45)
[2017-05-06] MEDS ORDERED: MoRPHine SULFATE 4 MG/ML 1 ML CARP\\VIAL IV PRN (22:45)
[2017-05-06] MEDS ORDERED: ONDANSETRON INJ 2 MG/ML 2 ML VIAL IV PRN (22:45)
[2017-05-06 23:15] VITALS: BP 114/79; PULSE 94; TEMP 36.7; O2SAT 94; O2SAT 96; Ht 185.4 cm; Wt 90.1 kg
--- NOTE | 2017-05-06 23:53 | History and Physical ---
History & Physical Date & Time of Service: May 06, 2017 at 23:53 Chief Complaint: Left Hydronephrosis, Left Ureteral Calculus Primary Care Physician: Adalid Barahona III, CRNP History of Present Illness Source: patient The patient is a 76-year-old male who presents emergency department with complaint of persistent left flank pain. He had been seen earlier in the morning, had a CT scan showing 2 left distal ureteral kidney stones, had been taking [place] at home, but as the pain became more persistent and worsening and became accompanied by nausea with a temperature of 99.6, he decided to return to the emergency department tonight. He does have a history of kidney stones, and follows with Dr. Keys from urology. Past Medical/Surgical History Medical Problems: (1) HTN (hypertension) Status: Chronic (2) Musculoskeletal chest pain Status: Chronic Surgical Problems: (1) H/O colonoscopy Status: Resolved (2) H/O prostatectomy Status: Resolved Family History Cancer Hypertension Social History Smoking Status: Never Smoker Smokeless Tobacco Use: No Alcohol Use: none Drug Use: none Marital Status: Housing status: lives with family Occupational Status: retired Multi-Drug Resistant Organisms History of MDRO: No Allergies Coded Allergies: Statins (Verified Allergy, Unknown, MUSCLE ACHES, 05/06/17) Home Medications Scheduled Aspirin (Ecotrin), 325 MG PO DAILY Citalopram Hydrobromide (Citalopram Hydrobromide), 5 MG PO DAILY Lisinopril (Zestril), 10 MG PO DAILY Lutein-Zeaxanthin (Lutein), 1 CAP PO DAILY Multiple Vitamins W/ Minerals (Centrum), 1 TABLET PO DAILY Nxgcj-0-Seyd Ethyl Esters ([place]-3), 1 CAP PO DAILY Rosuvastatin Calcium (Crestor), 5 MG PO 3XWK Scheduled PRN Hydrocodone/Acetaminophen 5MG/325MG ([place] 5MG/325MG), 1-2 TABLET PO Q6H PRN for Pain Ondasetron Odt (Zofran Odt), 4 MG SL Q6H PRN for Nausea Review of Systems The patient denies chest pain, palpitations, shortness of breath, cough, lower extremity swelling, sore throat, chills, sweats, weight change, fatigue, vomiting, blood in urine or stool, dysuria, urinary frequency or urgency, lightheadedness, dizziness, headache, memory loss, rash, abnormal bruising or bleeding, imbalance, focal or generalized weakness, numbness or tingling in arms or legs, arthralgias or myalgias, back or neck pain, night sweats. The review of systems is otherwise negative other than for that already noted above, and at least 10 systems have been reviewed. Physical Exam Vital Signs Date Time Temp Pulse Resp B/P (MAP) Pulse Ox O2 Delivery O2 Flow Rate FiO2 05/06/17 22:56 88 16 109/66 94 05/06/17 22:15 87 18 109/63 96 Room Air 05/06/17 20:40 90 18 110/67 96 Room Air 05/06/17 19:37 36.6 108 20 124/67 95 Room Air The patient is awake, well-developed and adequately nourished, alert and oriented 3, normocephalic and atraumatic, lying in bed and in mild distress secondary to flank pain. HEENT--PERRL, EOMI, mucous membranes and oropharynx normal. Neck--supple, no JVD or bruits, thyroid normal, trachea midline, no adenopathy. Heart--normal S1 and S2, no extra beats, no murmurs, rubs or gallops. Lungs--clear bilaterally with good air movement, no respiratory distress, no accessory muscle use. Abdomen--normal bowel sounds and soft, left flank tenderness, nondistended, no hernias or masses, no organomegaly. Extremities--no cyanosis, clubbing or edema. There are good distal pulses b/l. Dermatologic--normal skin turgor, normal color, warm and dry, no abnormal lymph nodes, no rash. Neurologic--cranial nerves II through XII grossly intact. Rheumatologic--normal range of motion, nontender, muscles and joints. Psychiatric--normal affect. Diagnostics Laboratory Results Results Past 24 Hours Test 05/06/17 19:45 05/06/17 20:40 Range/Units White Blood Count 13.43 4.8-10.8 K/uL Red Blood Count 4.63 4.7-6.1 M/uL Hemoglobin 14.0 14.0-18.0 g/dL Hematocrit 41.9 42-52 % Mean Corpuscular Volume 90.5 80-100 fL Mean Corpuscular Hemoglobin 30.2 25-34 pg Mean Corpuscular Hemoglobin Concent 33.4 32-36 g/dl Platelet Count 253 130-400 K/uL Mean Platelet Volume 9.9 7.4-10.4 fL Neutrophils (%) (Auto) 85.4 % Lymphocytes (%) (Auto) 6.8 % Monocytes (%) (Auto) 7.4 % Eosinophils (%) (Auto) 0.1 % Basophils (%) (Auto) 0.1 % Neutrophils # (Auto) 11.47 1.4-6.5 K/uL Lymphocytes # (Auto) 0.91 1.2-3.4 K/uL Monocytes # (Auto) 1.00 0.11-0.59 K/uL Eosinophils # (Auto) 0.01 0-0.5 K/uL Basophils # (Auto) 0.01 0-0.2 K/uL RDW Standard Deviation 43.9 36.4-46.3 fL RDW Coefficient of Variation 13.5 11.5-14.5 % Immature Granulocyte % (Auto) 0.2 % Immature Granulocyte # (Auto) 0.03 0.00-0.02 K/uL Sodium Level 132 136-145 mmol/L Potassium Level 4.2 3.5-5.1 mmol/L Chloride Level 100 98-107 mmol/L Carbon Dioxide Level 24 21-32 mmol/L Anion Gap 8.0 3-11 mmol/L Blood Urea Nitrogen 22 7-18 mg/dl Creatinine 1.40 0.60-1.40 mg/dl Est Creatinine Clear Calc Drug Dose 50.7 ml/min Estimated GFR () 56.2 Estimated GFR (Non- 48.5 BUN/Creatinine Ratio 16.0 10-20 Random Glucose 132 70-99 mg/dl Calcium Level 8.9 8.5-10.1 mg/dl Total Bilirubin 1.0 0.2-1 mg/dl Aspartate Amino Transf (AST/SGOT) 17 15-37 U/L Alanine Aminotransferase (ALT/SGPT) 24 12-78 U/L Alkaline Phosphatase 58 45-117 U/L Total Protein 6.7 6.4-8.2 gm/dl Albumin 3.5 3.4-5.0 gm/dl Globulin 3.2 2.5-4.0 gm/dl Albumin/Globulin Ratio 1.1 0.9-2 Lipase 143 73-393 U/L Urine Color YELLOW Urine Appearance CLEAR CLEAR Urine pH 5.0 4.5-7.5 Urine Specific [place] 1.027 1.000-1.030 Urine Protein NEG NEG Urine Glucose (UA) NEG NEG Urine Ketones 1+ NEG Urine Occult Blood 2+ NEG Urine Nitrite NEG NEG Urine Bilirubin NEG NEG Urine Urobilinogen NEG NEG Urine Leukocyte Esterase NEG NEG Urine WBC (Auto) 1-5 0-5 /hpf Urine RBC (Auto) 10-30 0-4 /hpf Urine Hyaline Casts (Auto) 1-5 0-5 /lpf Urine Epithelial Cells (Auto) 5-10 0-5 /lpf Urine Bacteria (Auto) NEG NEG Diagnostic Radiology Patient Name: ROSA FORD Unit Number: [id number] Dictated: 05/06/17730 Transcribed: 05/06/17730 MS Printed Date/Time: [~ rep prt dt]/[~ rep prt tm] [~ rep ct labl] - [~ rep ct ivnm] [facility] Radiology Department [place] [id number] Dictated: 05/06/17730 Transcribed: 05/06/17730 MS Printed Date/Time: [~ rep prt dt]/[~ rep prt tm] [~ rep ct labl] - [~ rep ct ivnm] [~ rep ct add3]] ABDOMEN AND PELVIS CT WITHOUT CONTRAST CT DOSE: HISTORY: Flank pain PAIN AT LEFT FLANK TECHNIQUE: Multiaxial CT images of the abdomen and pelvis were performed without the use of intravenous and oral contrast according to the standard department stone protocol. COMPARISON STUDY: None. FINDINGS: Lung bases are clear. Liver spleen and pancreas appear unremarkable. There are several small renal cortical and peripelvic cysts bilaterally. There is mild left hydroureteronephrosis. There are 2 partially obstructing calculi distal aspect left ureter. These measure 2 mm respectively. Bladder is midline. There are no contained bladder calcifications. Bowel pattern overall is nonobstructive. IMPRESSION: 2 small calcifications distal left ureter with mild left hydroureteronephrosis. Electronically signed by: Griffin Melendez M.D. 05/06/2017 7:34 AM Dictated Date/Time: 05/06/2017 7:31 AM The status of this report is Signed. Draft = Not yet reviewed or approved by Radiologist. Signed = Reviewed and approved by Radiologist. <AttendingPhy></AttendingPhy> <FamilyPhy>Adalid Barahona III, CRNP</FamilyPhy> < PrimaryPhy>Adalid Barahona III, CRNP</PrimaryPhy> <UnitNumber>[id number]</ UnitNumber> <VisitNumber>[id number]</VisitNumber> <PatientName>ROSA FORD</ PatientName> <DateOfBirth>1940</DateOfBirth> <Location>[facility]</Location> < ServiceDate>05/06/17</ServiceDate> <MNE>ESINDI</MNE> <OrderingPhy>Edmundo Pena M.D.</OrderingPhy> <OrderingPhyMNE>f rep ord dr staples</OrderingPhyMNE> < DictatingPhyMNE>f rep dict dr staples</DictatingPhyMNE> <CCListMNE>f rep ct mne</ CCListMNE> <AdmittingPhyMNE>f pt admit dr staples</AdmittingPhyMNE> <AttendingPhyMNE >f pt attend dr staples</AttendingPhyMNE> <ConsultingPhyMNE>f pt consult dr staples</ConsultingPhyMNE> <FamilyPhyMNE>f pt fam dr staples</FamilyPhyMNE> <OtherPhyMNE>f pt other dr staples</OtherPhyMNE> < PrimaryPhyMNE>f pt prim care dr staples</PrimaryPhyMNE> <ReferringPhyMNE>f pt referring dr staples</ReferringPhyMNE> Patient Name: ROSA FORD Unit Number: [id number] Dictated: 05/06/172115 Transcribed: 05/06/172115 RAPHAEL Printed Date/Time: [~ rep prt dt]/[~ rep prt tm] [~ rep ct labl] - [~ rep ct ivnm] [facility] [place] [place] [address] Dictated: 05/06/172115 Transcribed: 05/06/172115 RAPHAEL Printed Date/Time: [~ rep prt dt]/[~ rep prt tm] [~ rep ct labl] - [~ rep ct ivnm] [~ rep ct add3]] KUB CLINICAL HISTORY: Kidney stone. Flank pain. COMPARISON STUDY: CT of the abdomen and pelvis May 06, 2017 3:32 AM. FINDINGS: No urinary calculi are identified on this examination. The small distal left ureteral calculi shown on CT from earlier today are not visualized on this exam. A right pelvic calcification reflects a phlebolith. There is no evidence for a bowel obstruction. There is a moderate amount of stool. There are pelvic surgical clips. IMPRESSION: 1. No urinary calculi identified. The small distal left ureteral calculi shown on CT of earlier today are not visualized on this exam, possibly due to their small size. 2. No evidence of bowel obstruction. 3. Moderate to large amount of stool within the colon. Electronically signed by: Jayy Lim M.D. 05/06/2017 9:19 PM Dictated Date/Time: 05/06/2017 9:16 PM The status of this report is Signed. Draft = Not yet reviewed or approved by Radiologist. Signed = Reviewed and approved by Radiologist. <AttendingPhy></AttendingPhy> <FamilyPhy>Adalid Barahona III, CRNP</FamilyPhy> < PrimaryPhy>Adalid Barahona III, CRNP</PrimaryPhy> <UnitNumber>[id number]</ UnitNumber> <VisitNumber>[id number]</VisitNumber> <PatientName>LOGANROSA</ PatientName> <DateOfBirth>1940</DateOfBirth> <Location>[facility]</Location> < ServiceDate>05/06/17</ServiceDate> <MNE>ESINDI</MNE> <OrderingPhy>Marielos Torres PA-C</OrderingPhy> <OrderingPhyMNE>f rep ord dr staples</OrderingPhyMNE > <DictatingPhyMNE>f rep dict dr staples</DictatingPhyMNE> <CCListMNE>f rep ct mne</ CCListMNE> <AdmittingPhyMNE>f pt admit dr staples</AdmittingPhyMNE> <AttendingPhyMNE >f pt attend dr staples</AttendingPhyMNE> <ConsultingPhyMNE>f pt consult dr staples</ConsultingPhyMNE> <FamilyPhyMNE>f pt fam dr staples</FamilyPhyMNE> <OtherPhyMNE>f pt other dr staples</OtherPhyMNE> < PrimaryPhyMNE>f pt prim care dr staples</PrimaryPhyMNE> <ReferringPhyMNE>f pt referring dr staples</ReferringPhyMNE> Impression Assessment and Plan 2 Partially obstructing 2 mm distal left ureteral calculi with mild left hydroureteronephrosis--the patient will be admitted to the medical surgical floor, nothing by mouth except medications. He will be placed on normal saline with potassium chloride 20 mEq at 100 mils per hour, Cipro 400 mg IV twice a day, morphine sulfate 2-4 mg IV every 2 hours when necessary, and Zofran 4 mg IV every 6 hours when necessary. We'll consult his urologist Dr. Domingo Keys. Hypertension--hold aspirin 325 mg by mouth daily and Zestril 10 mg by mouth daily. Anxiety--hold citalopram 5 mg by mouth daily. Hyperlipidemia--hold Crestor 5 mg by mouth 3 times per week and fish oil 1 capsule by mouth daily. Level of Care Med/Surg Advanced Directives Existing Advance Directive: No Existing Living Will: No Existing Power of Bridge Gang Worker: No Resuscitation Status FULL RESUSCITATION VTE Prophylaxis VTE Risk Assessment Done? Y/N: Yes Risk Level: Moderate Given or contraindicated: SCD's Social Service Consult None Apply
[2017-05-07] MEDS: NSS + 20MEQ KCL 1000ML 1,000 ML IV SCH ×3 (02:14→19:03)
[2017-05-07 07:00] LABS: BASO % 0.1 %; BASO ABS # 0.01 K/uL (0-0.2); COMPLETE YES; EOS % 0.1 %; HEMATOCRIT 36.8 % (42-52); IG% 0.2 %; LYMPH ABS # 0.77 K/uL (1.2-3.4); MEAN CELL VOLUME 91.8 fL (80-100); MEAN CORPUSCULAR HEMOGLOBIN 30.4 pg (25-34); MEAN CORPUSCULAR HGB CONC 33.2 g/dl (32-36); MEAN PLATELET VOLUME 9.7 fL (7.4-10.4); MONO % 14.9 %; NEUT % 75.7 %; PLATELET COUNT 172 K/uL (130-400); RED BLOOD COUNT 4.01 M/uL (4.7-6.1); WHITE BLOOD COUNT 8.59 K/uL (4.8-10.8)
[2017-05-07 07:03] VITALS: BP 113/77; PULSE 84; TEMP 36.8; O2SAT 94
[2017-05-07 07:32] VITALS: O2SAT 94
[2017-05-07 07:36] LABS: BUN/CREATININE RATIO 15.3 (10-20); CALCIUM 8.2 mg/dl (8.5-10.1); CREATININE 1.2 mg/dl (0.60-1.40); MAGNESIUM 2.1 mg/dl (1.8-2.4); POTASSIUM 4.5 mmol/L (3.5-5.1)
[2017-05-07] MEDS: TAMSULOSIN HCL 0.4 MG CAP PO SCH ×2 (08:56→20:47)
--- NOTE | 2017-05-07 10:07 | Urology Consultation ---
History General Date of Service: May 07, 2017. Primary Care Physician: Adalid Barahona III, CRNP Pt seen a urologist before?: Yes If yes, why?: Prostate cancer and stones History of Present Illness 76 year old male admitted with left sided pain and hydronephrosis due to distal ureteral stones. He has been to the ER twice over the past 2 days. Pain returned after 1st visit and he was admitted. Reviewed his chart - AFVSS. White count has normalized since admission and creatinine is normal. CT and KUB images reviewed. CT scan shows tiny distal stones not visualized on KUB - most likely due to size. Also see large amount of stool within bowel. He is currently pain free. Reports he is feeling better. Denies chills, N/V. On IV Cipro. Hx of prostate cancer and prostatectomy. Imaging Imaging: CT, KUB Laboratory Last 24 Hours Test 05/06/17 19:45 05/06/17 20:40 05/07/17 06:28 White Blood Count 13.43 K/uL 8.59 K/uL Red Blood Count 4.63 M/uL 4.01 M/uL Hemoglobin 14.0 g/dL 12.2 g/dL Hematocrit 41.9 % 36.8 % Mean Corpuscular Volume 90.5 fL 91.8 fL Mean Corpuscular Hemoglobin 30.2 pg 30.4 pg Mean Corpuscular Hemoglobin Concent 33.4 g/dl 33.2 g/dl Platelet Count 253 K/uL 172 K/uL Mean Platelet Volume 9.9 fL 9.7 fL Neutrophils (%) (Auto) 85.4 % 75.7 % Lymphocytes (%) (Auto) 6.8 % 9.0 % Monocytes (%) (Auto) 7.4 % 14.9 % Eosinophils (%) (Auto) 0.1 % 0.1 % Basophils (%) (Auto) 0.1 % 0.1 % Neutrophils # (Auto) 11.47 K/uL 6.50 K/uL Lymphocytes # (Auto) 0.91 K/uL 0.77 K/uL Monocytes # (Auto) 1.00 K/uL 1.28 K/uL Eosinophils # (Auto) 0.01 K/uL 0.01 K/uL Basophils # (Auto) 0.01 K/uL 0.01 K/uL RDW Standard Deviation 43.9 fL 45.2 fL RDW Coefficient of Variation 13.5 % 13.6 % Immature Granulocyte % (Auto) 0.2 % 0.2 % Immature Granulocyte # (Auto) 0.03 K/uL 0.02 K/uL Sodium Level 132 mmol/L 133 mmol/L Potassium Level 4.2 mmol/L 4.5 mmol/L Chloride Level 100 mmol/L 102 mmol/L Carbon Dioxide Level 24 mmol/L 26 mmol/L Anion Gap 8.0 mmol/L 5.0 mmol/L Blood Urea Nitrogen 22 mg/dl 18 mg/dl Creatinine 1.40 mg/dl 1.20 mg/dl Est Creatinine Clear Calc Drug Dose 50.7 ml/min 59.2 ml/min Estimated GFR () 56.2 67.7 Estimated GFR (Non- 48.5 58.4 BUN/Creatinine Ratio 16.0 15.3 Random Glucose 132 mg/dl 120 mg/dl Calcium Level 8.9 mg/dl 8.2 mg/dl Total Bilirubin 1.0 mg/dl Aspartate Amino Transf (AST/SGOT) 17 U/L Alanine Aminotransferase (ALT/SGPT) 24 U/L Alkaline Phosphatase 58 U/L Total Protein 6.7 gm/dl Albumin 3.5 gm/dl Globulin 3.2 gm/dl Albumin/Globulin Ratio 1.1 Lipase 143 U/L Urine Color YELLOW Urine Appearance CLEAR Urine pH 5.0 Urine Specific [place] 1.027 Urine Protein NEG Urine Glucose (UA) NEG Urine Ketones 1+ Urine Occult Blood 2+ Urine Nitrite NEG Urine Bilirubin NEG Urine Urobilinogen NEG Urine Leukocyte Esterase NEG Urine WBC (Auto) 1-5 /hpf Urine RBC (Auto) 10-30 /hpf Urine Hyaline Casts (Auto) 1-5 /lpf Urine Epithelial Cells (Auto) 5-10 /lpf Urine Bacteria (Auto) NEG Magnesium Level 2.1 mg/dl Current Inpatient Medications Medications (Trade) Dose Ordered Sig/Reuben Route Start Time Stop Time Status Last Admin Dose Admin Acetaminophen (Tylenol Tab) 650 mg Q4H PRN PO 05/06/17 22:30 06/05/17 22:29 Ciprofloxacin/ Dextrose 400 mg/ Prmx 200 ml @ 100 mls/hr Q12H IV 05/07/17 10:00 05/17/17 09:59 Ondansetron HCl (Zofran Inj) 4 mg Q6H PRN IV 05/06/17 22:45 06/05/17 22:44 Potassium Chloride/Sodium Chloride 1,000 ml @ 100 mls/hr Q10H IV 05/06/17 22:32 06/05/17 22:31 05/07/17 08:24 100 MLS/HR Morphine Sulfate (MoRPHine SULFATE INJ) 2 mg Q2H PRN IV 05/06/17 22:45 05/20/17 22:44 Morphine Sulfate (MoRPHine SULFATE INJ) 4 mg Q2H PRN IV 05/06/17 22:45 05/20/17 22:44 05/06/17 23:25 4 MG Tamsulosin HCl (Flomax Cap) 0.4 mg BID PO 05/07/17 09:00 06/06/17 08:59 05/07/17 08:56 0.4 MG Labs were reviewed and are within normal limits unless listed below. Labs are available in the chart and at [facility] Problem List Medical Problems: (1) Chest pain Status: Acute (2) Dehydration Status: Acute (3) Dizziness Status: Acute (4) Intractable pain Status: Acute (5) Ureteral calculus, left Status: Acute Past History cancer - prostate, kidney stones Past Surgical History: other (prostatectomy) Family History Cancer Hypertension Social History Marital status: Housing status: lives with family Occupation status: retired History of MDRO No Allergies Coded Allergies: Statins (Verified Allergy, Unknown, MUSCLE ACHES, 05/06/17) Medications Home Medications: Home Meds and Scripts Medications Dose Route/Sig Max Daily Dose Days Date Category Dose Instructions Zofran Odt (Ondansetron HCl) 4 Mg Tab 4 Mg SL Q6H PRN 05/06/17 Reported Irvona 5MG/325MG (Acetaminophen/Hydrocodone Bitart) Tab 1-2 Tablet PO Q6H PRN 05/06/17 Reported PRN PAIN Lutein (Lutein-Zeaxanthin) 1 Cap Cap 1 Cap PO DAILY 05/06/17 Reported Citalopram Hydrobromide 10 Mg Tab 5 Mg PO DAILY 05/06/17 Reported Ecotrin (Aspirin) 325 Mg Tab 325 Mg PO DAILY 05/06/17 Reported [place]-3 ([id number] Ethyl Esters) 1 Cap Cap 1 Cap PO DAILY 05/28/16 Reported Crestor (Rosuvastatin Calcium) 5 Mg Tab 5 Mg PO 3XWK 05/28/16 Reported WEDNESDAY/WEDNESDAY/WEDNESDAY Zestril (Lisinopril) 5 Mg Tab 10 Mg PO DAILY 05/28/16 Reported Centrum (Multiple Vitamins W/ Minerals) 1 Tab Tab 1 Tablet PO DAILY 09/12/13 Reported Inpatient Medications: Current Inpatient Medications Medications (Trade) Dose Ordered Sig/Reuben Route Start Time Stop Time Status Last Admin Dose Admin Acetaminophen (Tylenol Tab) 650 mg Q4H PRN PO 05/06/17 22:30 06/05/17 22:29 Ciprofloxacin/ Dextrose 400 mg/ Prmx 200 ml @ 100 mls/hr Q12H IV 05/07/17 10:00 05/17/17 09:59 Ondansetron HCl (Zofran Inj) 4 mg Q6H PRN IV 05/06/17 22:45 06/05/17 22:44 Potassium Chloride/Sodium Chloride 1,000 ml @ 100 mls/hr Q10H IV 05/06/17 22:32 06/05/17 22:31 05/07/17 08:24 100 MLS/HR Morphine Sulfate (MoRPHine SULFATE INJ) 2 mg Q2H PRN IV 05/06/17 22:45 05/20/17 22:44 Morphine Sulfate (MoRPHine SULFATE INJ) 4 mg Q2H PRN IV 05/06/17 22:45 05/20/17 22:44 05/06/17 23:25 4 MG Tamsulosin HCl (Flomax Cap) 0.4 mg BID PO 05/07/17 09:00 06/06/17 08:59 05/07/17 08:56 0.4 MG Review of Systems Review of Systems Constitutional: No fever, No chills Neurological: No dizzy Endocrine: No excessive thirst Gastrointestinal: No abdominal pain, No nausea, No vomiting Cardiovascular: No chest pain Respiratory: No shortness of breath Skin: No rash Ears / Nose / Throat: No hearing loss Psychologic / Mental: No nervous Male : No frequent urination, No painful urination, No blood in urine Physical Exam Vital Signs: Vital Signs Past 12 Hours Date Time Temp Pulse Resp B/P (MAP) Pulse Ox O2 Delivery O2 Flow Rate FiO2 05/07/17 07:32 94 Room Air 05/07/17 07:03 36.8 84 17 113/77 (89) 94 Room Air 05/06/17 23:15 36.7 94 14 114/79 (91) 96 Room Air 05/06/17 23:15 36.7 94 14 114/79 94 Room Air 05/06/17 23:15 Room Air 05/06/17 22:56 88 16 109/66 94 05/06/17 22:15 87 18 109/63 96 Room Air Physical Exam: General Appearance: WD/WN, no apparent distress ENT: hearing grossly normal Neck: no JVD Respiratory/Chest: no respiratory distress, no accessory muscle use Extremities: normal range of motion, non-tender, no calf tenderness Neurologic/Psychiatric: alert, normal mood/affect, oriented x 3 Skin: normal color, warm/dry, no rash Assessment & Plan Assessment & Plan Imaging: CT, KUB Left sided ureteral stones Pt is afebrile and currently pain free. Creatinine and WBC normal today. Discussed case with Dr. Black. Will feed pt regular diet today and make NPO after midnight. No plans for surgery now since he is pain free. If pain returns and is significant would need ureteroscopy. Will repeat KUB in am. If no further pain can d/c tomorrow. He has a regular follow up appt with Dr. Keys on May 19. He will keep this appt. Thanks for the consult. Will continue to follow along with primary care.
[2017-05-07] MEDS: CIPROFLOXACIN / D5W 400 MG in PREMIXED IN D5W 200 ML IV SCH ×2 (10:30→21:49)
--- NOTE | 2017-05-07 11:18 | Clinical Documentation Query ---
CLINICAL DOCUMENTATION QUERY Dr. DELGADILLO, In your clinical opinion is this patient being managed for: ( x ) Chronic kidney disease, stage 3 ( ) Other explanation of clinical findings (Please Explain) ( ) Unable to determine (Please Define) ( ) Need to Discuss ( ) Not Agree The medical record reflects the following clinical findings, treatment, and risk factors. Clinical Indicators: 76 yo male presenting with L ureteral calculus. Review of historical GFR showed range of 44.6-58.8 over the past 2 years with a Cr baseline of 1.2-1.4 Treatment: monitor PRP's, treat comorbid conditions Risk Factors: age, HTN, dyslipidemia Please clarify and document your clinical opinion in the progress notes and discharge summary. Terms such as "probable", "suspected", "likely", "questionable", "possible", or "still to be ruled out" are acceptable. IF IN AGREEMENT, YOU MUST DOCUMENT ABOVE DIAGNOSTIC STATEMENT IN DAILY PROGRESS NOTES AND DISCHARGE SUMMARY. This document is not part of the patient's record. Thank You, Radha Verdin, RN [phone]
--- NOTE | 2017-05-07 11:48 | Hospitalist Progress Note ---
Hospitalist Progress Note Date of Service May 07, 2017. (Janay Harper ., ROM) Subjective Pt evaluation today including: conversation w/ patient, physical exam, chart review, lab review, review of studies, review of inpatient medication list Voiding: no voiding problems, no incontinence Patient states he is feeling well. Pain is well controlled and minimal. He tolerated lunch. +abdominal bloating- has not had a BM in 2 days Patient denies any fever, chills, sweats, lightheadedness, dizziness, vision changes, CP, palpitations, edema, SOB, wheezing, cough, abdominal pain, nausea, vomiting, diarrhea, urinary symptoms, melena, numbness/tingling, weakness, muscle/joint pain, anxiety/depression, active bleeding, or new skin discoloration/changes. (Janay Harper ., ADRIANAC) Medications Current Inpatient Medications Medications (Trade) Dose Ordered Sig/Reuben Route Start Time Stop Time Status Last Admin Dose Admin Acetaminophen (Tylenol Tab) 650 mg Q4H PRN PO 05/06/17 22:30 06/05/17 22:29 Ciprofloxacin/ Dextrose 400 mg/ Prmx 200 ml @ 100 mls/hr Q12H IV 05/07/17 10:00 05/17/17 09:59 05/07/17 10:30 100 MLS/HR Ondansetron HCl (Zofran Inj) 4 mg Q6H PRN IV 05/06/17 22:45 06/05/17 22:44 Potassium Chloride/Sodium Chloride 1,000 ml @ 100 mls/hr Q10H IV 05/06/17 22:32 06/05/17 22:31 05/07/17 08:24 100 MLS/HR Morphine Sulfate (MoRPHine SULFATE INJ) 2 mg Q2H PRN IV 05/06/17 22:45 05/20/17 22:44 Morphine Sulfate (MoRPHine SULFATE INJ) 4 mg Q2H PRN IV 05/06/17 22:45 05/20/17 22:44 05/06/17 23:25 4 MG Tamsulosin HCl (Flomax Cap) 0.4 mg BID PO 05/07/17 09:00 06/06/17 08:59 05/07/17 08:56 0.4 MG Rosuvastatin Calcium (Crestor Tab) 5 mg HS PO 05/07/17 21:00 06/06/17 20:59 Citalopram Hydrobromide (celeXA TAB) 5 mg DAILY PO 05/08/17 09:00 06/07/17 08:59 (Janay Harper PA-C) Objective Vital Signs Date Time Temp Pulse Resp B/P (MAP) Pulse Ox O2 Delivery O2 Flow Rate FiO2 05/07/17 07:32 94 Room Air 05/07/17 07:03 36.8 84 17 113/77 (89) 94 Room Air 05/06/17 23:15 36.7 94 14 114/79 (91) 96 Room Air 05/06/17 23:15 36.7 94 14 114/79 94 Room Air 05/06/17 23:15 Room Air 05/06/17 22:56 88 16 109/66 94 05/06/17 22:15 87 18 109/63 96 Room Air 05/06/17 20:40 90 18 110/67 96 Room Air 05/06/17 19:37 36.6 108 20 124/67 95 Room Air (Janay Harper PA-C) Physical Exam General Appearance: no apparent distress Eyes: normal inspection, PERRL ENT: hearing grossly normal Neck: supple Respiratory/Chest: lungs clear, no respiratory distress, no accessory muscle use Cardiovascular: regular rate, rhythm Abdomen: normal bowel sounds, non tender, soft Extremities: no pedal edema, no calf tenderness Neurologic/Psychiatric: alert, normal mood/affect, oriented x 3 Skin: normal color, warm/dry, no rash (Janay Harper PA-C) Laboratory Results Last 24 Hours Test 05/06/17 19:45 05/06/17 20:40 05/07/17 06:28 White Blood Count 13.43 K/uL 8.59 K/uL Red Blood Count 4.63 M/uL 4.01 M/uL Hemoglobin 14.0 g/dL 12.2 g/dL Hematocrit 41.9 % 36.8 % Mean Corpuscular Volume 90.5 fL 91.8 fL Mean Corpuscular Hemoglobin 30.2 pg 30.4 pg Mean Corpuscular Hemoglobin Concent 33.4 g/dl 33.2 g/dl Platelet Count 253 K/uL 172 K/uL Mean Platelet Volume 9.9 fL 9.7 fL Neutrophils (%) (Auto) 85.4 % 75.7 % Lymphocytes (%) (Auto) 6.8 % 9.0 % Monocytes (%) (Auto) 7.4 % 14.9 % Eosinophils (%) (Auto) 0.1 % 0.1 % Basophils (%) (Auto) 0.1 % 0.1 % Neutrophils # (Auto) 11.47 K/uL 6.50 K/uL Lymphocytes # (Auto) 0.91 K/uL 0.77 K/uL Monocytes # (Auto) 1.00 K/uL 1.28 K/uL Eosinophils # (Auto) 0.01 K/uL 0.01 K/uL Basophils # (Auto) 0.01 K/uL 0.01 K/uL RDW Standard Deviation 43.9 fL 45.2 fL RDW Coefficient of Variation 13.5 % 13.6 % Immature Granulocyte % (Auto) 0.2 % 0.2 % Immature Granulocyte # (Auto) 0.03 K/uL 0.02 K/uL Sodium Level 132 mmol/L 133 mmol/L Potassium Level 4.2 mmol/L 4.5 mmol/L Chloride Level 100 mmol/L 102 mmol/L Carbon Dioxide Level 24 mmol/L 26 mmol/L Anion Gap 8.0 mmol/L 5.0 mmol/L Blood Urea Nitrogen 22 mg/dl 18 mg/dl Creatinine 1.40 mg/dl 1.20 mg/dl Est Creatinine Clear Calc Drug Dose 50.7 ml/min 59.2 ml/min Estimated GFR () 56.2 67.7 Estimated GFR (Non- 48.5 58.4 BUN/Creatinine Ratio 16.0 15.3 Random Glucose 132 mg/dl 120 mg/dl Calcium Level 8.9 mg/dl 8.2 mg/dl Total Bilirubin 1.0 mg/dl Aspartate Amino Transf (AST/SGOT) 17 U/L Alanine Aminotransferase (ALT/SGPT) 24 U/L Alkaline Phosphatase 58 U/L Total Protein 6.7 gm/dl Albumin 3.5 gm/dl Globulin 3.2 gm/dl Albumin/Globulin Ratio 1.1 Lipase 143 U/L Urine Color YELLOW Urine Appearance CLEAR Urine pH 5.0 Urine Specific [place] 1.027 Urine Protein NEG Urine Glucose (UA) NEG Urine Ketones 1+ Urine Occult Blood 2+ Urine Nitrite NEG Urine Bilirubin NEG Urine Urobilinogen NEG Urine Leukocyte Esterase NEG Urine WBC (Auto) 1-5 /hpf Urine RBC (Auto) 10-30 /hpf Urine Hyaline Casts (Auto) 1-5 /lpf Urine Epithelial Cells (Auto) 5-10 /lpf Urine Bacteria (Auto) NEG Magnesium Level 2.1 mg/dl (Janay Harper, ROM) Assessment and Plan The patient is a 76-year-old male who presents emergency department with complaint of persistent left flank pain. He had been seen earlier in the morning, had a CT scan showing 2 left distal ureteral kidney stones, had been taking [place] at home, but as the pain became more persistent and worsening and became accompanied by nausea with a temperature of 99.6, he decided to return to the emergency department tonight. He does have a history of kidney stones, and follows with Dr. Keys from urology. 2 partially obstructing 2 mm distal left ureteral calculi w/ mild left hydroureteronephrosis: - Admitted to the medical surgical floor - Regular diet and NPO after midnight per urology - ASA 325 mg daily held due to hematuria - IV NS + KCL 20 mEq @ 100 ml/hr - Cipro 400 mg IV BID - Flomax 0.4 mg BID - Morphine sulfate 2-4 mg IV q2 hrsPRN, Tylenol PRN pain, and IV Zofran PRN nausea - Consul urology, appreciate recommendations -- No plans for surgery now since he is pain free. If pain returns and is significant would need ureteroscopy. -- Repeat KUB in am. -- Regular follow-up appt with Dr. Keys on May 19 Hypertension: Lisinopril 10 mg daily held due to NPO status at admission- currently on regular diet, but BPs controlled w/out medication- continue to monitor Anxiety: Citalopram 5 mg by mouth daily Hyperlipidemia: Crestor 5 mg by mouth 3 times per week and fish oil 1 capsule by mouth daily GI Prophylaxis: MiraLAX daily PRN DVT: TEDs/SCDs; chemical therapy held due to hematuria and ?procedure if needed Code Status: LEVEL I, FULL Dispo: Hopeful discharge to home tomorrow- no discharge needs anticipated (Janay Harper, ADRIANAC) I personally examined pt and verified all robles points w T Meredith CUETO feeling better no significant pain no further fever. eating/drinking OK. vitals noted nad breathing unlabored no pallor or icterus, no diaphoresis ureteral stone / low grade temp - no further fevers, but with low grade temp at home and mild leukocytosis - obligated to treat. unfortunately no urine culture but empiric abx appearing to be improving situation. likely won't need urologic intervention. continue to follow. hopefully home as long as pain stays controlled and no further fevers (Tin Munoz D.O.)
[2017-05-07] MEDS ORDERED: POLYETHYLENE (MIRALAX) 17 GM PACK PO PRN ×2 (12:15→17:15)
--- NOTE | 2017-05-07 12:48 | Clinical Documentation Query ---
CLINICAL DOCUMENTATION QUERY Ms. CHANEL, In your clinical opinion is this patient being managed for: ( x ) Chronic kidney disease, stage 3 ( ) Other explanation of clinical findings (Please Explain) ( ) Unable to determine (Please Define) ( ) Need to Discuss ( ) Not Agree The medical record reflects the following clinical findings, treatment, and risk factors. Clinical Indicators: 76 yo male presenting with L ureteral calculus. Review of historical GFR showed range of 44.6-58.8 over the past 2 years with a Cr baseline of 1.2-1.4 Treatment: monitor PRP's, treat comorbid conditions Risk Factors: age, HTN, dyslipidemia Please clarify and document your clinical opinion in the progress notes and discharge summary. Terms such as "probable", "suspected", "likely", "questionable", "possible", or "still to be ruled out" are acceptable. IF IN AGREEMENT, YOU MUST DOCUMENT ABOVE DIAGNOSTIC STATEMENT IN DAILY PROGRESS NOTES AND DISCHARGE SUMMARY. This document is not part of the patient's record. Thank You, Radha Verdin, RUBEN [phone]
[2017-05-07 15:20] VITALS: BP 129/75; PULSE 94; TEMP 37; O2SAT 94
[2017-05-07] MEDS ORDERED: POLYETHYLENE (MIRALAX) 17 GM PACK PO ONE (17:30)
[2017-05-07] MEDS: MAGNESIUM HYDROXIDE SUSP 30 ML UDC PO PRN (19:03)
[2017-05-07] MEDS ORDERED: ROSUVASTATIN CALCIUM 10 MG TAB PO SCH (21:00)
[2017-05-07 23:50] VITALS: BP 118/71; PULSE 87; TEMP 36.8; O2SAT 93
[2017-05-08] MEDS: MAGNESIUM HYDROXIDE SUSP 30 ML UDC PO PRN (00:56)
[2017-05-08] MEDS: NSS + 20MEQ KCL 1000ML 1,000 ML IV SCH (04:46)
[2017-05-08] MEDS ORDERED: BISACODYL 10 MG SUPP ONE (06:27)
[2017-05-08] MEDS ORDERED: BISACODYL 10 MG SUPP PR PRN (06:30)
[2017-05-08] MEDS ORDERED: NURSING VERBAL MED ORDER ONE (06:30)
[2017-05-08] MEDS ORDERED: SOD PHOSPHATE/SOD BIPHOSPHATE ENEMA 132 ML BTL PR PRN (06:30)
[2017-05-08 07:11] VITALS: BP 135/77; PULSE 108; TEMP 36.4; O2SAT 93
[2017-05-08 07:54] LABS: BASO % 0.2 %; BASO ABS # 0.02 K/uL (0-0.2); COMPLETE YES; EOS % 0.1 %; HEMATOCRIT 40.2 % (42-52); IG% 0.1 %; LYMPH % 9.3 %; LYMPH ABS # 0.87 K/uL (1.2-3.4); MEAN CELL VOLUME 92.2 fL (80-100); MEAN CORPUSCULAR HEMOGLOBIN 29.8 pg (25-34); MEAN CORPUSCULAR HGB CONC 32.3 g/dl (32-36); MEAN PLATELET VOLUME 9.6 fL (7.4-10.4); MONO % 15.2 %; NEUT % 75.1 %; PLATELET COUNT 213 K/uL (130-400); RED BLOOD COUNT 4.36 M/uL (4.7-6.1); WHITE BLOOD COUNT 9.36 K/uL (4.8-10.8)
[2017-05-08 07:55] VITALS: BP 135/77; PULSE 108; TEMP 36.4; O2SAT 93
[2017-05-08 08:36] LABS: BUN/CREATININE RATIO 11.9 (10-20); CALCIUM 8.7 mg/dl (8.5-10.1); CREATININE 1.4 mg/dl (0.60-1.40); POTASSIUM 4.2 mmol/L (3.5-5.1)
[2017-05-08] MEDS ORDERED: CITALOPRAM 20 MG TAB PO SCH (09:00)
--- NOTE | 2017-05-08 09:06 | DIAGNOSTIC IMAGING REPORT ---
KUB CLINICAL HISTORY: Left ureteral stone. COMPARISON STUDY: CT of the abdomen and pelvis and KUB May 06, 2017. FINDINGS: Pelvic surgical clips are noted. There is no evidence for a bowel obstruction. The small distal left ureteral calculi shown on CT of May 06, 2017 are not visualized on this exam. IMPRESSION: No urinary calculi identified. The small distal left ureteral calculi shown on CT of May 06, 2017 are not visualized on this study. Electronically signed by: Jayy Lim M.D. 05/08/2017 9:05 AM Dictated Date/Time: 05/08/2017 9:00 AM
--- NOTE | 2017-05-08 09:33 | Discharge Instructions ---
Discharge Instructions Date of Service May 08, 2017. Admission Reason for Admission: Left Hydronephrosis, Left Ureteral Calculus Discharge Discharge Diagnosis / Problem: kidney stone - improving, questionable infection Discharge Goals Goal(s): Diagnostic testing, Therapeutic intervention Activity Recommendations Activity Limitations: resume your previous activity . Instructions / Follow-Up Instructions / Follow-Up stone / pain --given the improvement in your pain, and that we no longer see the stone on Xray, it's quite likely that it's passed. if you experience any recurrence of pain, you are likely to be able to do OK at home with the pain medication you already have -the "big three" reasons to need to return would be: a) pain that isn't controlled by the pain meds at home b) nausea/vomiting that's making it so you can't stay hydrated or can't take medications c) a fever --because of the low grade fever you had prior to admission, we were obligated to treat for possible infection along with the stone - because things got better so fast, we'll only need to treat for about 2 more days (four more doses ) of cipro - you've been getting it IV and tolerating it well, so it's unlikely you'll run into any troubles. the biggest thing to watch for would be if it makes you feel nauseated, take it with food. much more rare (and much more noted with a "cousin" medication to cipro than cipro itself) is that these medications can make you a little more likely to have tendonitis or even tendon rupture - so for the next few weeks take it easy as far as heavy lifting, repetitive lifting, or overhead lifting ---because of effects on kidneys, we recommend you strictly avoid anti- inflammatories as a pain medication (talk more with Adalid Barahona, but it's likely that overall it would be a good decision to generally avoid anti- inflammatories in the detention) constipation ---because of the pain meds ---moving around, having the pain meds out of your system, and time should resolve this. if you're having discomfort from being constipated, then we'd recommend using miralax 17g up to three times a day (typical dosing would be once a day as needed, so three doses would be very likely to get things moving if needed) follow up with Adalid Barahona this coming week; if it seems like you're still having any trouble from the stone, then they can also get you back in with urology. Current Hospital Diet Patient's current hospital diet: Regular Diet Discharge Diet Recommended Diet: Regular Diet Pending Studies Studies pending at discharge: no Medical Emergencies . Who to Call and When: Medical Emergencies: If at any time you feel your situation is an emergency, please call 911 immediately. . Non-Emergent Contact Non-Emergency issues call your: Primary Care Provider . . "Provider Documentation" section prepared by Tin Munoz. . VTE Core Measure Inpt VTE Proph given/why not?: SCD's
[2017-05-08] MEDS ORDERED: CIPR1TAB11 PO ×2 (10:03)
[2017-05-08] MEDS: CIPROFLOXACIN / D5W 400 MG in PREMIXED IN D5W 200 ML IV SCH (10:10)
[2017-05-08] MEDS: TAMSULOSIN HCL 0.4 MG CAP PO SCH (10:10)
--- NOTE | 2017-05-08 10:48 | Progress Note ---
Subjective Date of Service: May 08, 2017. Subjective Pt evaluation today including: conversation w/ patient, physical exam, chart review, lab review, review of studies Pain: no pain since admission constipation Problem List Medical Problems: (1) Chest pain Status: Acute (2) Dehydration Status: Acute (3) Dizziness Status: Acute (4) Intractable pain Status: Acute (5) Ureteral calculus, left Status: Acute Objective Vital Signs Date Time Temp Pulse Resp B/P (MAP) Pulse Ox O2 Delivery O2 Flow Rate FiO2 05/08/17 07:55 36.4 108 22 135/77 (96) 93 Room Air 05/08/17 07:46 Room Air 05/08/17 07:11 36.4 108 22 135/77 (96) 93 Room Air 05/07/17 23:50 36.8 87 18 118/71 (87) 93 Room Air 05/07/17 23:45 Room Air 05/07/17 15:50 Room Air 05/07/17 15:20 37.0 94 20 129/75 (93) 94 Room Air Laboratory Results Last 24 Hours Test 05/08/17 07:31 White Blood Count 9.36 K/uL Red Blood Count 4.36 M/uL Hemoglobin 13.0 g/dL Hematocrit 40.2 % Mean Corpuscular Volume 92.2 fL Mean Corpuscular Hemoglobin 29.8 pg Mean Corpuscular Hemoglobin Concent 32.3 g/dl Platelet Count 213 K/uL Mean Platelet Volume 9.6 fL Neutrophils (%) (Auto) 75.1 % Lymphocytes (%) (Auto) 9.3 % Monocytes (%) (Auto) 15.2 % Eosinophils (%) (Auto) 0.1 % Basophils (%) (Auto) 0.2 % Neutrophils # (Auto) 7.03 K/uL Lymphocytes # (Auto) 0.87 K/uL Monocytes # (Auto) 1.42 K/uL Eosinophils # (Auto) 0.01 K/uL Basophils # (Auto) 0.02 K/uL RDW Standard Deviation 46.9 fL RDW Coefficient of Variation 13.9 % Immature Granulocyte % (Auto) 0.1 % Immature Granulocyte # (Auto) 0.01 K/uL Sodium Level 142 mmol/L Potassium Level 4.2 mmol/L Chloride Level 110 mmol/L Carbon Dioxide Level 27 mmol/L Anion Gap 5.0 mmol/L Blood Urea Nitrogen 17 mg/dl Creatinine 1.40 mg/dl Est Creatinine Clear Calc Drug Dose 50.7 ml/min Estimated GFR () 56.2 Estimated GFR (Non- 48.5 BUN/Creatinine Ratio 11.9 Random Glucose 115 mg/dl Calcium Level 8.7 mg/dl Assessment and Plan pt to be discharged discussed the fact that he may get pain again and that he should strain his urine and take narcotics if needed with a stool softener. stones appeared small on ct and not visible on kub yesterday or today . pt has f/u w Dr Keys in 11 days
[2017-05-08 11:07] VITALS: BP 135/77; PULSE 108; TEMP 36.4; O2SAT 93
--- NOTE | 2017-05-08 14:51 | Discharge Summary ---
Discharge Summary Date of Service May 08, 2017. Discharge Summary Admission Date: May 06, 2017 at 22:29 Discharge Date: May 08, 2017 Discharge Disposition: Home Principal Diagnosis: ureterolithiasis, possible UTI Problems/Secondary Diagnoses: constipation Procedures: [~ rep ct add3]] KUB CLINICAL HISTORY: Kidney stone. Flank pain. COMPARISON STUDY: CT of the abdomen and pelvis May 06, 2017 3:32 AM. FINDINGS: No urinary calculi are identified on this examination. The small distal left ureteral calculi shown on CT from earlier today are not visualized on this exam. A right pelvic calcification reflects a phlebolith. There is no evidence for a bowel obstruction. There is a moderate amount of stool. There are pelvic surgical clips. IMPRESSION: 1. No urinary calculi identified. The small distal left ureteral calculi shown on CT of earlier today are not visualized on this exam, possibly due to their small size. 2. No evidence of bowel obstruction. 3. Moderate to large amount of stool within the colon. Electronically signed by: Jayy Lim M.D. 05/06/2017 9:19 PM Consultations: urology Medication Reconciliation New Medications: Ciprofloxacin Tab (Cipro) 250 Mg Tab 250 MG PO BID, #4 TAB Continued Medications: Aspirin (Ecotrin) 325 Mg Tab 325 MG PO DAILY Citalopram Hydrobromide (Citalopram Hydrobromide) 10 Mg Tab 5 MG PO DAILY, TAB Hydrocodone/Acetaminophen 5MG/325MG ([place] 5MG/325MG) Tab 1-2 TABLET PO Q6H PRN for Pain, TAB PRN PAIN Lisinopril (Zestril) 5 Mg Tab 10 MG PO DAILY, TAB Lutein-Zeaxanthin (Lutein) 1 Cap Cap 1 CAP PO DAILY Multiple Vitamins W/ Minerals (Centrum) 1 Tab Tab 1 TABLET PO DAILY [id number] Ethyl Esters (Frazer-3) 1 Cap Cap 1 CAP PO DAILY, CAP Ondasetron Odt (Zofran Odt) 4 Mg Tab 4 MG SL Q6H PRN for Nausea, #6 TAB Rosuvastatin Calcium (Crestor) 5 Mg Tab 5 MG PO 3XWK WEDNESDAY/WEDNESDAY/WEDNESDAY Discharge Exam Physical Exam: General Appearance: no apparent distress Eyes: EOMI ENT: hearing grossly normal Neck: trachea midline Respiratory/Chest: no respiratory distress, no accessory muscle use Neurologic/Psychiatric: aluminum pourer II-XII nml as tested, alert, normal mood/affect Skin: normal color, warm/dry Hospital Course ureteral stone / low grade temp - no further fevers, but with low grade temp at home and mild leukocytosis - obligated to treat. unfortunately no urine culture but empiric abx appearing to be improving situation - to finish out 2 more days cipro. likely won't need urologic intervention, but urology aware of his situation and outpt f/u scheduled. pain controlled with PO meds (he already has Rx at home from previous visit) and no s/s sepsis. stable for home possible stage 3a CKD - appearing overall stable. uncertain if just upper limits of normal Cr + age creating picture of CKD due to limitations of cockroft gault equation once one is over 70yrs old, or if has mild degree of baseline CKD Total Time Spent: Less than 30 minutes This includes examination of the patient, discharge planning, medication reconciliation, and communication with other providers. Discharge Instructions Please refer to the electronic Patient Visit Report (Discharge Instructions) for additional information.
[2017-07-05] MEDS ORDERED: LISI-461 PO (07:10)
[2017-07-05] MEDS ORDERED: CLOT1PAK (07:10)
[2017-07-05] MEDS ORDERED: APIX1TAB3 PO (07:10)
[2017-07-20] MEDS ORDERED: METO25TA56 PO (15:24)
== END 2017-05-08 12:17 | disposition home or self-care (01) | DRG 694 ==
LOC: C.EDB 19:34 → C.MSN 22:29 → ENRESERV 22:38
PROVIDERS: ADMIT Hospitalist; ATTEND Family Medicine
DX: N13.2 Hydronephrosis with renal and ureteral calculous obstruction (principal); I10 Essential (primary) hypertension; K59.00 Constipation, unspecified; E78.5 Hyperlipidemia, unspecified; F41.9 Anxiety disorder, unspecified; Z79.82 Long term (current) use of aspirin; Z85.46 Personal history of malignant neoplasm of prostate; Z80.9 Family history of malignant neoplasm, unspecified; Z82.49 Family history of ischemic heart disease and other diseases of the circulatory system; E86.0 Dehydration; Z90.79 Acquired absence of other genital organ(s)

== ENCOUNTER → 2017-05-14 | Outpatient (CLI) | payer OTHER ==
[~2017-05-14] MED LIST changes: +AMOX875T PO; +APIX1TAB3 PO; -ASPI-428 PO; -ASPI325T39 PO; +CIPR1TAB11 PO; +CLOT1PAK; +FLM4 PO; +LISI-461 PO; +METO25TA56 PO
[2017-05-14 12:48] LABS: ALT/SGPT 26 U/L (12-78); AST/SGOT 15 U/L (15-37); BLOOD UREA NITROGEN 23 mg/dl (7-18); BUN/CREATININE RATIO 17.4 (10-20); CARBON DIOXIDE 27 mmol/L (21-32); CHLORIDE 106 mmol/L (98-107); GLUCOSE 89 mg/dl (70-99); POTASSIUM 4.3 mmol/L (3.5-5.1); SODIUM 139 mmol/L (136-145)
[2017-05-14 12:53] LABS: ALB/GLOB RATIO 0.8 (0.9-2); ALKALINE PHOSPHATASE 70 U/L (45-117); CHOLESTEROL 179 mg/dl (0-200); CHOLESTEROL/HDL RATIO 4.8; HDL CHOLESTEROL 37 mg/dl; LDL CHOLESTEROL CALCULATED 119 mg/dl; TRIGLYCERIDES 114 mg/dl (0-150); VERY LOW DENSITY LIPOPROT CALC 23 mg/dl
== END | disposition home or self-care (01) ==
LOC: C.LAB1850 11:32
PROVIDERS: ATTEND Nurse Practitioner Family
DX: I10 Essential (primary) hypertension (principal); E78.5 Hyperlipidemia, unspecified; F32.9 Major depressive disorder, single episode, unspecified; E88.9 Metabolic disorder, unspecified; K21.9 Gastro-esophageal reflux disease without esophagitis; C61 Malignant neoplasm of prostate

== ENCOUNTER → 2017-05-19 | Outpatient (CLI) | payer OTHER | END | disposition home or self-care (01) | LOC: C.LABSPEC 17:10 | PROVIDERS: ATTEND Urology | DX: N20.0 Calculus of kidney (principal) ==

== ENCOUNTER 2017-05-27 10:18 | Emergency (ER) | payer OTHER ==
[~2017-05-27] VITALS: Ht 185.4 cm; Wt 86.4 kg
[~2017-05-27 10:18] MED LIST changes: -AMOX875T PO; -APIX1TAB3 PO; -CLOT1PAK; -FLM4 PO; -LISI-461 PO; -METO25TA56 PO
[2017-05-27 10:20] VITALS: TEMP 36.7; Ht 185.4 cm; Wt 86.4 kg
[2017-05-27] MEDS ORDERED: AMOX875T PO (10:35)
[2017-05-27] MEDS ORDERED: FLM4 PO (10:35)
[2017-05-27] MEDS ORDERED: METOPROLOL TARTRATE 1 MG/ML VIAL IV STA (10:40)
[2017-05-27 10:57] LABS: HEMATOCRIT 46.4 % (42-52); MEAN CELL VOLUME 91.7 fL (80-100); MEAN CORPUSCULAR HEMOGLOBIN 31.4 pg (25-34); MEAN CORPUSCULAR HGB CONC 34.3 g/dl (32-36); MEAN PLATELET VOLUME 9.8 fL (7.4-10.4); PLATELET COUNT 350 K/uL (130-400); RED BLOOD COUNT 5.06 M/uL (4.7-6.1); WHITE BLOOD COUNT 6.95 K/uL (4.8-10.8)
[2017-05-27 11:00] VITALS: O2SAT 95
[2017-05-27 11:08] LABS: PARTIAL THROMBOPLASTIN RATIO 0.9; PROTHROMBIN TIME (PATIENT) 10.5 SECONDS (9.0-12.0)
[2017-05-27 11:15] LABS: MANUAL MICROSCOPIC REQUIRED? NO; URINE APPEARANCE CLEAR (CLEAR); URINE BILIRUBIN NEG (NEG); URINE COLOR YELLOW; URINE NITRITE NEG (NEG); URINE SPECIFIC GRAVITY <= 1.005 (1.000-1.030); UROBILINOGEN NEG (NEG)
[2017-05-27 11:17] LABS: REVIEW REQ? NO; ZZUR CULT IF INDIC CLEAN CATCH NO
[2017-05-27 11:20] LABS: BLOOD UREA NITROGEN 25 mg/dl (7-18); BUN/CREATININE RATIO 19.1 (10-20); CALCIUM 9.2 mg/dl (8.5-10.1); CARBON DIOXIDE 27 mmol/L (21-32); CHLORIDE 107 mmol/L (98-107); GLUCOSE 133 mg/dl (70-99); POTASSIUM 4.1 mmol/L (3.5-5.1); SODIUM 139 mmol/L (136-145)
[2017-05-27 11:30] LABS: ALKALINE PHOSPHATASE 66 U/L (45-117); ALT/SGPT 29 U/L (12-78); AST/SGOT 17 U/L (15-37)
--- NOTE | 2017-05-27 11:39 | DIAGNOSTIC IMAGING REPORT ---
CHEST 2 VIEWS ROUTINE HISTORY: 76 years Male atrial fibrillation COMPARISON: Chest radiograph 12/30/2016 TECHNIQUE: Frontal and lateral views of the chest FINDINGS: The cardiomediastinal and hilar silhouettes are within normal limits. No pneumothorax or pleural effusion. There are persistent patchy subsegmental opacities of the left lung base suggesting scarring or atelectasis. No lobar airspace consolidations are identified. Lungs are mildly hyperinflated. There are mild to moderate degenerative changes about the shoulders and spine. IMPRESSION: 1. No acute cardiopulmonary process. 2. Unchanged patchy left basilar opacities suggest atelectasis or scarring. The above report was generated using voice recognition software. It may contain grammatical, syntax or spelling errors. Electronically signed by: Emiliano Vo M.D. 05/27/2017 11:38 AM Dictated Date/Time: 05/27/2017 11:36 AM
--- NOTE | 2017-05-27 12:01 | EMERGENCY ROOM VISIT NOTE ---
History Report prepared by Zoya: Renetta Grier Under the Supervision of: Dr. Trey Sharpe M.D. First contact with patient: 10:31 Chief Complaint: CARDIAC ASSESSMENT Stated Complaint: AFIB Nursing Triage Summary: Pt. went to his PCP today for dizziness. The EKG at PCP showed a new onset of A-Fib. ALS was called and brought pt. in. Denies CP or SOB. History of Present Illness The patient is a 76 year old male who presents to the Emergency Room for a cardiac assessment. The patient has been having headaches and "dizzy spells" for the past couple of months. They have been worsening and becoming more frequent. Yesterday he was experiencing symptoms and his checked his blood pressure. It was 106/54, so they called his PCP and made an appointment for today. This morning the patient went to his appointment and was found to be in atrial fibrillation. He does not have any history of atrial fibrillation. ALS was called and the patient was brought to the ED for further evaluation. The patient denies shortness of breath, chest pain, palpitations, fevers, and chills. 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 Pt also denies palpitations. Review of Systems All systems have been listed, reviewed, and are negative other than those previously mentioned. Please see Additional Medical History Sheet. Past Medical & Surgical Medical Problems: (1) HTN (hypertension) (2) Hydronephrosis, left (3) Left ureteral calculus (4) Musculoskeletal chest pain (5) Precordial chest pain Surgical Problems: (1) H/O colonoscopy (2) H/O prostatectomy Family History Cancer Hypertension Social History Smoking Status: Never Smoker Alcohol Use: occasionally Drug Use: none Marital Status: Housing Status: lives with significant other Occupation Status: retired Current/Historical Medications Scheduled Amoxicillin & Pot Clavulanate (Augmentin 875-125 mg), 1 TAB PO BIDM Aspirin (Ecotrin), 325 MG PO DAILY Citalopram Hydrobromide (Citalopram Hydrobromide), 5 MG PO DAILY Lisinopril (Zestril), 10 MG PO DAILY Lutein-Zeaxanthin (Lutein), 1 CAP PO DAILY Metoprolol Tartrate (Lopressor) (Lopressor), 25 MG PO BID Multiple Vitamins W/ Minerals (Centrum), 1 TABLET PO DAILY [id number]-[id number] Ethyl Esters ([place]-3), 1 CAP PO DAILY Rosuvastatin Calcium (Crestor), 5 MG PO 3XWK Tamsulosin HCl (Tamsulosin HCl), 0.4 MG PO DAILY Allergies Coded Allergies: Statins (Verified Allergy, Unknown, MUSCLE ACHES, 05/06/17) Physical Exam Vital Signs Date Time Temp Pulse Resp B/P (MAP) Pulse Ox O2 Delivery O2 Flow Rate FiO2 05/27/17 14:41 120/93 05/27/17 14:38 79 23 99 05/27/17 14:33 76 19 97 05/27/17 14:28 86 18 91 05/27/17 14:23 89 18 98 05/27/17 14:18 85 23 98 05/27/17 14:13 78 22 96 05/27/17 14:08 80 22 99 05/27/17 14:03 83 20 100 05/27/17 13:58 77 21 100 05/27/17 13:53 80 21 99 05/27/17 13:48 74 21 99 05/27/17 13:43 70 17 99 05/27/17 13:38 71 17 97 05/27/17 13:33 73 20 94 05/27/17 13:28 72 24 93 05/27/17 13:23 79 20 98 05/27/17 13:18 73 25 98 05/27/17 13:13 75 24 96 05/27/17 13:08 72 22 97 05/27/17 13:03 71 21 97 05/27/17 12:58 72 21 94 05/27/17 12:55 73 20 120/87 Room Air 05/27/17 12:54 120/87 05/27/17 12:53 73 23 95 05/27/17 12:48 72 22 98 05/27/17 12:43 68 21 98 05/27/17 12:38 75 20 98 05/27/17 12:33 82 29 97 05/27/17 12:28 74 23 97 05/27/17 12:23 75 21 94 05/27/17 12:18 72 19 98 05/27/17 12:13 79 22 99 05/27/17 12:08 80 18 92 05/27/17 12:04 121/84 05/27/17 12:03 77 24 98 05/27/17 11:58 83 22 132/89 96 05/27/17 11:53 77 22 98 05/27/17 11:48 76 24 99 05/27/17 11:45 123/85 05/27/17 11:43 80 21 97 05/27/17 11:39 123/85 05/27/17 11:23 82 22 95 05/27/17 11:18 83 22 97 05/27/17 11:13 94 21 97 05/27/17 11:08 93 20 99 05/27/17 11:06 97 145/87 05/27/17 11:04 145/87 05/27/17 11:00 95 Room Air 05/27/17 10:45 146/103 05/27/17 10:43 100 25 97 05/27/17 10:38 99 17 98 05/27/17 10:33 100 21 98 05/27/17 10:28 93 20 96 05/27/17 10:23 103 24 05/27/17 10:21 105 05/27/17 10:20 95 Room Air 05/27/17 10:20 36.7 97 16 153/88 Room Air 05/27/17 10:19 153/88 Physical Exam GENERAL: Patient awake, alert, oriented x 3. Patient follows commands. Patient does not appear toxic. Patient is adequately hydrated and well- nourished. SKIN: No erythema, pallor, cyanosis or rash HEENT: Normal head, pupils equal, reactive to light and accommodation. Ears normal. Oral cavity and posterior pharynx appear normal. Neck: Without adenopathy, no neck vein distention, thyroid not enlarged, no masses palpated, carotids are strong and equal bilaterally. LUNGS: Clear to auscultation. No wheezes, no rales, no rhonchi. HEART: Irregularly irregular rhythm. No murmurs. No gallops. No rubs ABDOMEN: No masses, no rebound, no hepatomegaly or splenomegaly. EXTREMITIES: No signs of trauma. No pedal or pretibial edema. No calf or thigh tenderness. NEUROLOGIC: Cranial nerves II-XII within normal limits. No gross motor sensory function deficits. Medical Decision & Procedures ER Provider Diagnostic Interpretation: Radiology results as stated below per my review and radiologist interpretation: CHEST 2 VIEWS ROUTINE HISTORY: 76 years Male atrial fibrillation COMPARISON: Chest radiograph 12/30/2016 TECHNIQUE: Frontal and lateral views of the chest FINDINGS: The cardiomediastinal and hilar silhouettes are within normal limits. No pneumothorax or pleural effusion. There are persistent patchy subsegmental opacities of the left lung base suggesting scarring or atelectasis. No lobar airspace consolidations are identified. Lungs are mildly hyperinflated. There are mild to moderate degenerative changes about the shoulders and spine. IMPRESSION: 1. No acute cardiopulmonary process. 2. Unchanged patchy left basilar opacities suggest atelectasis or scarring. The above report was generated using voice recognition software. It may contain grammatical, syntax or spelling errors. Electronically signed by: Emiliano Vo M.D. 05/27/2017 11:38 AM Dictated Date/Time: 05/27/2017 11:36 AM Laboratory Results 05/27/17 10:15 05/27/17 10:15 Test 05/27/17 10:15 05/27/17 10:55 Red Blood Count 5.06 M/uL (4.7-6.1) Mean Corpuscular Volume 91.7 fL (80-100) Mean Corpuscular Hemoglobin 31.4 pg (25-34) Mean Corpuscular Hemoglobin Concent 34.3 g/dl (32-36) RDW Standard Deviation 44.9 fL (36.4-46.3) RDW Coefficient of Variation 13.5 % (11.5-14.5) Mean Platelet Volume 9.8 fL (7.4-10.4) Prothrombin Time 10.5 SECONDS (9.0-12.0) Prothromb Time International Ratio 1.0 (0.9-1.1) Activated Partial Thromboplast Time 24.4 SECONDS (21.0-31.0) Partial Thromboplastin Ratio 0.9 Anion Gap 5.0 mmol/L (3-11) Est Creatinine Clear Calc Drug Dose 54.6 ml/min Estimated GFR () 61.4 Estimated GFR (Non- 53.0 BUN/Creatinine Ratio 19.1 (10-20) Calcium Level 9.2 mg/dl (8.5-10.1) Total Bilirubin 0.4 mg/dl (0.2-1) Aspartate Amino Transf (AST/SGOT) 17 U/L (15-37) Alanine Aminotransferase (ALT/SGPT) 29 U/L (12-78) Alkaline Phosphatase 66 U/L (45-117) Troponin I < 0.015 ng/ml (0-0.045) Total Protein 7.6 gm/dl (6.4-8.2) Albumin 3.8 gm/dl (3.4-5.0) Globulin 3.8 gm/dl (2.5-4.0) Albumin/Globulin Ratio 1.0 (0.9-2) Thyroid Stimulating Hormone (TSH) 1.270 uIu/ml (0.300-4.500) Urine Color YELLOW Urine Appearance CLEAR (CLEAR) Urine pH 5.0 (4.5-7.5) Urine Specific [place] <= 1.005 (1.000-1.030) Urine Protein NEG (NEG) Urine Glucose (UA) NEG (NEG) Urine Ketones NEG (NEG) Urine Occult Blood NEG (NEG) Urine Nitrite NEG (NEG) Urine Bilirubin NEG (NEG) Urine Urobilinogen NEG (NEG) Urine Leukocyte Esterase NEG (NEG) Laboratory results as stated above per my review. Medications Administered Medications (Trade) Dose Ordered Sig/Reuben Route Start Time Stop Time Status Last Admin Dose Admin Metoprolol Tartrate (Lopressor Iv) 15 mg NOW STAT IV 05/27/17 10:40 05/27/17 10:44 DC 05/27/17 11:06 5 MG Apixaban (Eliquis Tab) 5 mg ONE ONCE PO 05/27/17 12:30 05/27/17 12:31 DC 05/27/17 13:13 5 MG Metoprolol Tartrate (Lopressor Tab) 25 mg NOW STAT PO 05/27/17 12:23 05/27/17 12:27 DC 05/27/17 13:13 25 MG ECG Indication: other Rate (beats per minute): 95 Rhythm: atrial fibrillation Findings: no acute ischemic change, left axis deviation Comparison ECG Date: 12/30/16 Change: The patient is no longer in sinus rhythm and is now in atrial fibrillation. ED Course 1031: Past medical records reviewed. The patient was evaluated in room B11A. A complete history and physical examination was performed. 1040: Lopressor 15 mg IV 1203: Upon reevaluation the patient's HR has come down, but he is still in a- fib. 1217: I spoke with Dr. Nielsen of [facility]. We discussed the patient's case. We will start the patient on Eliquis now. He will be discharged to go directly to Dr. Nielsen's office for follow-up and further samples today. 1223: Lopressor 25 mg PO 1230: Eliquis tab 5 mg PO 1235: I reassessed the patient at this time. He is resting comfortably. I discussed the results and treatment plan with the patient and his . I answered all pertaining questions that they had. They expressed understanding and verbalized agreement. The patient will be discharged and has been instructed to go directly to Dr. Nielsen's office. Medical Decision Differential diagnoses includes new onset atrial fibrillation, hypotension, metabolic disorder, thyroid dysfunction. 76-year-old male sent here due to what appeared to be new onset atrial fibrillation. As it turns out, the patient may have been in nature fibrillation for the past few months. Patient also complains of slight headache. Multiple labs, EKG and imaging were obtained. Please see above. The patient remains in atrial fibrillation with a rate less than 100. There was some questionable hypotension yesterday but that was not seen today. He was given 3 doses of metoprolol IV with the lowering of his rate but no conversion. He was also given 25 mg of oral metoprolol. The patient was given 5 mg of Eliquis. I discussed care with the manager net. We both feel that the patient is safe to return home but will require follow-up with cardiology area in the meantime the patient will remain on metoprolol and Eliquis. The patient was warned about potential bleeding problems. Medication Reconcilliation Current Medication List: was personally reviewed by me Blood Pressure Screening Patient's blood pressure: Normal blood pressure Blood pressure disposition: Did not require urgent referral Consults Time Called: 1214 Consulting Physician: Dr. Nielsen Returned Call: [address] Nielsen of [facility]. We discussed the patient' s case. We will start the patient on Eliquis now. He will be discharged to go directly to Dr. Nielsen's office for follow-up and further samples today. Impression Primary Impression: Atrial fibrillation Scribe Attestation The scribe's documentation has been prepared under my direction and personally reviewed by me in its entirety. I confirm that the note above accurately reflects all work, treatment, procedures, and medical decision making performed by me. Departure Information Dispostion Home / Self-Care Prescriptions Metoprolol Tartrate (Lopressor) (Lopressor) 25 Mg Tab 25 MG PO BID, #20 TAB Prov: Trey Sharpe M.D. 05/27/17 Referrals Adalid Barahona III, CRNP (PCP) Jose Ramon Nielsen M.D. Forms IMPORTANT VISIT INFORMATION Patient Instructions Apixaban oral tablets, My [facility] [place] [id number] Additional Instructions Take 25 mg of metoprolol twice a day. Take 5 mg of Eliquis once a day. Do not take any other blood thinners including nonsteroidal anti-inflammatory medications. Go directly to Dr. Nielsen's office today. Problem Qualifiers Primary Impression: Atrial fibrillation Atrial fibrillation type: unspecified Qualified Codes: I48.91 - Unspecified atrial fibrillation
[2017-05-27] MEDS ORDERED: METOPROLOL TARTRATE 50 MG TAB PO STA (12:23)
[2017-05-27] MEDS ORDERED: METO25TA56 PO (12:29)
[2017-05-27] MEDS ORDERED: APIXABAN 2.5 MG TAB PO ONE (12:30)
[2017-05-27 14:38] VITALS: PULSE 79; O2SAT 99
[2017-05-27 14:41] VITALS: BP 120/93
--- NOTE | 2017-05-27 15:03 | Cardiology Consultation ---
Cardiology Consultation Date of Consultation: May 27, 2017. Requesting Physician: Dr. Sharpe Reason for Consultation: Atrial fibrillation Pt evaluation today including: conversation w/ patient, physical exam, lab review, review of inpatient medication list, conversation w/ attending History of Present Illness This is a very pleasant 76-year-old gentleman with a history of hypertension and hypercholesterolemia who presented with intermittent dizziness to the office today. He was therefore referred to the emergency room. His story is a little bit vague and it has changed somewhat, what he described to me was having a several month history of progressive intermittent lightheadedness, not presyncope, possibly somewhat orthostatic. He also feels that he has been a little bit lethargic and feels that he has less energy for about the same amount of time. In the office today he was observed to be in atrial fibrillation , he has no known history of this. He was sent to the emergency room. In the emergency room he was observed to have atrial fibrillation with a slightly increased heart rate which responded well to low dose metoprolol intravenously. Laboratory studies were unremarkable. At the time of my evaluation in the emergency room he was feeling well, he had not been having any of his lightheadedness during the emergency room visit and has not been having any difficulty with chest discomfort, exertional shortness of breath and has no palpitations. The duration of the arrhythmia is therefore uncertain. He was evaluated in the hospital about 3 weeks ago for a kidney stone , however it does not appear that he had any sort of rhythm monitoring or electrocardiography performed although his heart rate is noted to be regular. Of note his symptoms preceded that hospitalization. Past Medical/Surgical History (1) Precordial chest pain (2) Left ureteral calculus (3) HTN (hypertension) Family History Cancer Hypertension Social History Smoking Status: Never Smoker History of Alcohol Use: Yes (A LITTLE WINE A DAY, 5 oz) Review of Systems Constitutional: No fever, No weight loss, No weakness Respiratory: No cough, No wheezing, No shortness of breath, No dyspnea on exertion Cardiac: + see HPI, + problem reported (intermittent dizziness), No chest pain , No orthopnea, No PND, No edema, No palpitations Abdomen: No pain, No nausea, No vomiting, No diarrhea, No GI bleeding Male : No urinary frequency, No nocturia more than once/night, No slowing stream, No sexual dysfunction Neurologic: No paralysis, No weakness, No numbness/tingling, No balance problems Heme: No abnormal bleeding/bruising, No clotting problems Endo: No fatigue Skin: No problem reported All Other Systems: Reviewed and Negative Allergies Coded Allergies: Statins (Verified Allergy, Unknown, MUSCLE ACHES, 05/06/17) Physical Exam Vital Signs Past 12 Hours Date Time Temp Pulse Resp B/P (MAP) Pulse Ox O2 Delivery O2 Flow Rate FiO2 05/27/17 14:41 120/93 05/27/17 14:38 79 23 99 05/27/17 14:33 76 19 97 05/27/17 14:28 86 18 91 05/27/17 14:23 89 18 98 05/27/17 14:18 85 23 98 05/27/17 14:13 78 22 96 05/27/17 14:08 80 22 99 05/27/17 14:03 83 20 100 05/27/17 13:58 77 21 100 05/27/17 13:53 80 21 99 05/27/17 13:48 74 21 99 05/27/17 13:43 70 17 99 05/27/17 13:38 71 17 97 05/27/17 13:33 73 20 94 05/27/17 13:28 72 24 93 05/27/17 13:23 79 20 98 05/27/17 13:18 73 25 98 05/27/17 13:13 75 24 96 05/27/17 13:08 72 22 97 05/27/17 13:03 71 21 97 05/27/17 12:58 72 21 94 05/27/17 12:55 73 20 120/87 Room Air 05/27/17 12:54 120/87 05/27/17 12:53 73 23 95 05/27/17 12:48 72 22 98 05/27/17 12:43 68 21 98 05/27/17 12:38 75 20 98 05/27/17 12:33 82 29 97 05/27/17 12:28 74 23 97 05/27/17 12:23 75 21 94 05/27/17 12:18 72 19 98 05/27/17 12:13 79 22 99 05/27/17 12:08 80 18 92 05/27/17 12:04 121/84 05/27/17 12:03 77 24 98 05/27/17 11:58 83 22 132/89 96 05/27/17 11:53 77 22 98 05/27/17 11:48 76 24 99 05/27/17 11:45 123/85 05/27/17 11:43 80 21 97 05/27/17 11:39 123/85 05/27/17 11:23 82 22 95 05/27/17 11:18 83 22 97 05/27/17 11:13 94 21 97 05/27/17 11:08 93 20 99 05/27/17 11:06 97 145/87 05/27/17 11:04 145/87 05/27/17 11:00 95 Room Air 05/27/17 10:45 146/103 05/27/17 10:43 100 25 97 05/27/17 10:38 99 17 98 05/27/17 10:33 100 21 98 05/27/17 10:28 93 20 96 05/27/17 10:23 103 24 05/27/17 10:21 105 05/27/17 10:20 95 Room Air 05/27/17 10:20 36.7 97 16 153/88 Room Air 05/27/17 10:19 153/88 Constitutional: General Apperance: heathly-appearing Level of Distress: NAD Psychiatric: Mental Status: active & alert Head: normocephalic Eyes: EOM: EOMI ENMT: normal ENT inspection, hearing grossly normal Neck: supple, no masses Lungs: Respiratory effort: no dyspnea, good air movement Auscultation: breath sounds normal, no wheezing Cardiovascular: Heart Auscultation: no murmurs, no rubs, no gallops, irregular rate rhythm Peripheral Pulses: Bruits: none appreciated Abdomen: Bowel Sounds: normal Inspection & Palpation: soft, no tenderness, guarding & rebound, no masses Musculoskeletal: normal strength (5/5 throughout) Extremities: no edema Neurologic: Cranial Nerves: grossly intact Sensation: grossly intact Data Laboratory Results: Last 24 Hours Test 05/27/17 10:15 05/27/17 10:55 White Blood Count 6.95 K/uL Red Blood Count 5.06 M/uL Hemoglobin 15.9 g/dL Hematocrit 46.4 % Mean Corpuscular Volume 91.7 fL Mean Corpuscular Hemoglobin 31.4 pg Mean Corpuscular Hemoglobin Concent 34.3 g/dl RDW Standard Deviation 44.9 fL RDW Coefficient of Variation 13.5 % Platelet Count 350 K/uL Mean Platelet Volume 9.8 fL Prothrombin Time 10.5 SECONDS Prothromb Time International Ratio 1.0 Activated Partial Thromboplast Time 24.4 SECONDS Partial Thromboplastin Ratio 0.9 Sodium Level 139 mmol/L Potassium Level 4.1 mmol/L Chloride Level 107 mmol/L Carbon Dioxide Level 27 mmol/L Anion Gap 5.0 mmol/L Blood Urea Nitrogen 25 mg/dl Creatinine 1.30 mg/dl Est Creatinine Clear Calc Drug Dose 54.6 ml/min Estimated GFR () 61.4 Estimated GFR (Non- 53.0 BUN/Creatinine Ratio 19.1 Random Glucose 133 mg/dl Calcium Level 9.2 mg/dl Total Bilirubin 0.4 mg/dl Aspartate Amino Transf (AST/SGOT) 17 U/L Alanine Aminotransferase (ALT/SGPT) 29 U/L Alkaline Phosphatase 66 U/L Troponin I < 0.015 ng/ml Total Protein 7.6 gm/dl Albumin 3.8 gm/dl Globulin 3.8 gm/dl Albumin/Globulin Ratio 1.0 Thyroid Stimulating Hormone (TSH) 1.270 uIu/ml Urine Color YELLOW Urine Appearance CLEAR Urine pH 5.0 Urine Specific [place] <= 1.005 Urine Protein NEG Urine Glucose (UA) NEG Urine Ketones NEG Urine Occult Blood NEG Urine Nitrite NEG Urine Bilirubin NEG Urine Urobilinogen NEG Urine Leukocyte Esterase NEG EKG: Atrial fibrillation with a heart rate of 95 bpm, left axis deviation, no other abnormality. This arrhythmia is new compared to his last electrocardiogram of 12/30/2016. Telemetry reviewed: Atrial fibrillation with a slightly high heart rate on arrival (low 100s), after intravenous metoprolol heart rate is in the 80s and 90s. Assessment & Plan #1. Intermittent lightheadedness: The cause of this is uncertain, he did present in atrial fibrillation of unknown duration but has not had lightheadedness today. His blood pressure is a little bit on the low side and his heart rate was little bit fast so this is a possible cause of his symptoms. If control of his atrial arrhythmia does not cause resolution of his symptoms it may have to be evaluated for other causes. Since we don't know the duration of the atrial fibrillation it is hard to be sure whether his symptoms are related to it, although based on his recollection today his symptoms preceded his hospitalization at the end of April for a kidney stone but no electrocardiographic recordings were done at that time. #2. Atrial fibrillation: The duration is unknown, in December 2016 he is in sinus rhythm, the end of April 2017 he was evaluated here and hospitalized for several days but no electro-cardiographic recordings were performed but it is likely that he was not in atrial fibrillation at that time based on examination and vital sign data where his heart rate was in the 80-108 bpm range, with his presentation on 05/06/2017 being 108 bpm. In December 2016 (when we know he was in sinus rhythm) his vital sign pulse is between 77 and 89 bpm, a little bit slower but perhaps not significantly so.. Without knowing the duration we really shouldn't perform cardioversion now and I therefore recommended anticoagulation with eliquis 5 mg twice a day. We will give him one dose the emergency room and I will send him over to the office to get samples. I will see him in follow-up in about 2 weeks, we can arrange cardioversion if he remains in atrial fibrillation. Agree with low-dose metoprolol to help with rate control. I will plan on getting an echocardiogram in our office. Thank you for allowing me to participate in his care.
[2017-07-05] MEDS ORDERED: APIX1TAB3 PO (07:10)
[2017-07-05] MEDS ORDERED: CLOT1PAK (07:10)
[2017-07-05] MEDS ORDERED: LISI-461 PO (07:10)
[2017-07-20] MEDS ORDERED: METO25TA56 PO (15:24)
== END 2017-05-27 15:07 | disposition home or self-care (01) ==
LOC: EDBD 10:18 → C.EDB 10:19
DX: I48.91 Unspecified atrial fibrillation (principal); I10 Essential (primary) hypertension; Z90.79 Acquired absence of other genital organ(s); Z82.49 Family history of ischemic heart disease and other diseases of the circulatory system; Z79.82 Long term (current) use of aspirin

== ENCOUNTER → 2017-07-05 | Day surgery (SDC) | payer OTHER ==
[~2017-07-05] VITALS: Ht 185.4 cm; Wt 82.0 kg
[2017-07-05] VITALS (8 sets, daily range): BP systolic 112–156; BP diastolic 60–94; PULSE 65–110; TEMP 36.3; O2SAT 96–99; Ht 185.4 cm; Wt 82.0 kg
[~2017-07-05] MED LIST changes: +AMOX875T PO; +APIX1TAB3 PO; -CIPR1TAB11 PO; +CLOT1PAK; +FLM4 PO; -HYDR-5688 PO; +LIDOCAINE HCL 2% 2 ML VIAL (20MG/ML) ONE; +LISI-461 PO; +METO25TA56 PO; -ONDA4TAB10 SL; +PROPOFOL IV EMULSION 10 MG/ML 20 ML VIAL IV ONE
--- NOTE | 2017-07-05 08:05 | History & Physical Bridge Note ---
H&P Re-Evaluation Bridge Note: I have examined the patient, reviewed the History & Physical and in the interval since the performance of the History & Physical I have noted the following changes of clinical significance: No changes noted. I reviewed the indications, procedure, risks and alternatives with patient and he understands and agrees to proceed. His was present. Consent obtained.
--- NOTE | 2017-07-05 08:23 | Cardioversion ---
Electricial Cardioversion Rpt Date of Service: 07/05/2017 Electrical Cardioversion Rprt The patient was brought to the laboratory being NPO after midnight. He was identified in the laboratory, connected to the recording apparatus including electrocardiographic monitoring, noninvasive blood pressure monitoring and pulse oximetry. Anteroposterior patch electrodes were placed. He was anesthetized by the anesthesia department. Once adequate anesthesia was obtained a synchronized biphasic shock was delivered using 200 J. He converted to a sinus rhythm. He awoke from the anesthetic without sequela. He will be observed briefly and then discharged.
--- NOTE | 2017-07-05 09:06 | Anesthesiology Progress Note ---
Anesthesia Post Op Note Date & Time Jul 05, 2017 at 09:06 Vital Signs Pain Intensity: 0 Vital Signs Past 12 Hours Date Time Temp Pulse Resp B/P (MAP) Pulse Ox O2 Delivery O2 Flow Rate FiO2 07/05/17 09:00 69 16 111/54 (73) 96 Room Air 07/05/17 08:40 68 16 119/65 (83) 96 Room Air 07/05/17 08:35 68 16 112/66 (81) 96 Room Air 07/05/17 08:30 65 16 101/60 (74) 96 Room Air 07/05/17 08:25 66 16 118/62 (80) 96 Room Air 07/05/17 08:20 66 16 100/66 (77) 96 Room Air 07/05/17 08:20 71 16 118/66 96 Room Air 4 07/05/17 08:13 65 16 112/60 99 Nasal Cannula 4 07/05/17 08:12 70 16 115/63 99 Nasal Cannula 4 07/05/17 08:08 106 16 156/67 99 Nasal Cannula 4 07/05/17 08:06 106 16 154/81 99 Nasal Cannula 4 07/05/17 08:04 110 16 149/91 99 Nasal Cannula 4 07/05/17 07:16 36.3 84 16 148/94 96 Room Air Notes Mental Status: alert / awake / arousable, participated in evaluation Pt Amnestic to Procedure: Yes Nausea / Vomiting: adequately controlled Pain: adequately controlled Airway Patency, RR, SpO2: stable & adequate BP & HR: stable & adequate Hydration State: stable & adequate Anesthetic Complications: no major complications apparent
--- NOTE | 2017-07-05 09:51 | Discharge Instructions ---
Discharge Instructions Date of Service Jul 05, 2017. Admission Reason for Admission: Atrial fibrillation Discharge Discharge Diagnosis / Problem: electrical cardioversion Discharge Goals Goal(s): Improve disease control Activity Recommendations Activity Limitations: resume your previous activity . Instructions / Follow-Up Instructions / Follow-Up ACTIVITY RECOMMENDATIONS: * May resume driving tomorrow. SPECIAL CARE: * May apply burn ointment for skin irritation. * Please contact physician for any lightheadedness, dizziness or palpitations. We will arrange an office visit in one month Current Hospital Diet Patient's current hospital diet: AHA Diet (Heart Healthy) Discharge Diet Recommended Diet: AHA Diet (Heart Healthy) Pending Studies Studies pending at discharge: no Laboratory Results Lipid Panel Test 05/14/17 11:35 Range/Units Triglycerides Level 114 0-150 mg/dl Cholesterol Level 179 0-200 mg/dl HDL Cholesterol 37 mg/dl Cholesterol/HDL Ratio 4.8 LDL Cholesterol, Calculated 119 mg/dl Medical Emergencies . Who to Call and When: Medical Emergencies: If at any time you feel your situation is an emergency, please call 911 immediately. . Non-Emergent Contact Non-Emergency issues call your: Primary Care Provider . . "Provider Documentation" section prepared by Jose Ramon Nielsen. . VTE Core Measure Inpt VTE Proph given/why not?: Other Anticoagulation
== END | disposition home or self-care (01) ==
LOC: C.CATH 06:54
PROVIDERS: ATTEND Internal Medicine Cardiovascular Disease
DX: I48.91 Unspecified atrial fibrillation (principal); F32.9 Major depressive disorder, single episode, unspecified; E78.5 Hyperlipidemia, unspecified; I10 Essential (primary) hypertension; K21.9 Gastro-esophageal reflux disease without esophagitis; Z87.442 Personal history of urinary calculi; M19.90 Unspecified osteoarthritis, unspecified site; Z82.0 Family history of epilepsy and other diseases of the nervous system; Z80.3 Family history of malignant neoplasm of breast; Z82.49 Family history of ischemic heart disease and other diseases of the circulatory system; R42 Dizziness and giddiness; Z79.82 Long term (current) use of aspirin

== ENCOUNTER → 2017-07-26 | Day surgery (SDC) | payer OTHER ==
[2017-07-20 15:26] VITALS: Ht 182.9 cm; Wt 86.3 kg
--- NOTE | 2017-07-20 16:00 | PAT Medication Instructions ---
Service Date Jul 20, 2017. Current Home Medication List Apixaban (Eliquis), 5 MG PO BID Citalopram Hydrobromide (Citalopram Hydrobromide), 5 MG PO QAM Lisinopril (Zestril), 5 MG PO QAM Metoprolol Tartrate (Lopressor) (Lopressor), 25 MG PO BID Multiple Vitamins W/ Minerals (Centrum), 1 TABLET PO QAM [id number] Ethyl Esters ([place]-3), 1 CAP PO QAM Rosuvastatin Calcium (Crestor), 5 MG PO [id number] Medication Instructions For Your Scheduled Surgery - Instructions per to hold 3 days prior to surgery and 2 days after surgery: Apixaban (Eliquis), 5 MG PO BID - Continue as directed: Rosuvastatin Calcium (Crestor), 5 MG PO 3XWK - Hold the following medications as of 07/20/17: [id number] Ethyl Esters ([place]-3), 1 CAP PO QAM - Hold the following medications the morning of surgery: Lisinopril (Zestril), 5 MG PO QAM Multiple Vitamins W/ Minerals (Centrum), 1 TABLET PO QAM - Take the following medications the morning of surgery with a sip of water OTHERWISE NOTHING TO EAT OR DRINK AFTER MIDNIGHT: Citalopram Hydrobromide (Citalopram Hydrobromide), 5 MG PO QAM Metoprolol Tartrate (Lopressor) (Lopressor), 25 MG PO BID - Take the following medications as scheduled the night before surgery: Metoprolol Tartrate (Lopressor) (Lopressor), 25 MG PO BID If you have any questions please call us at [phone] or [phone] or [phone]
[~2017-07-26] VITALS: Ht 182.9 cm; Wt 86.3 kg
[~2017-07-26] MED LIST changes: -AMOX875T PO; -ASPI-560 PO; +ATROPINE SULFATE 0.1 MG/ML 5ML SYR IV PRN; -CLOT1PAK; +DEXAMETHASONE SOD INJ 4 MG/ML VIAL ONE; +EpHEDrine SULFATE INJ 50 MG/ML AMP IV PRN; +EpINEphrine INJ 1MG/ML AMP 1 MG/ML AMP ONE; +FENTANYL CITRATE INJ 50 MCG/1 ML 2 ML VIAL IV PRN; +FENTANYL CITRATE INJ 50 MCG/1 ML 2 ML VIAL ONE; -FLM4 PO; +FLUMAZENIL 0.1 MG/1 ML 10 ML VIAL IV PRN; +HYDROCODONE/ACETAMOPHEN 5/325MG TAB PO PRN; +HYDROmorphone INJ 2 MG/ML SYR/VIAL IV PRN; +LABETALOL HCL IV 5 MG/ML 20ML IV PRN; +LACTATED RINGER'S 1000ML 1,000 ML IV SCH; +LIDOCAINE/EPINEPHRINE 1% INJ 50 ML VIAL ONE; -LISI-729 PO; -LUTE15CA PO; +MEPERIDINE HCL 25 MG/ML CARP IV PRN; +MIDAZOLAM HCL 1 MG/ML 2ML VIAL ONE; +NALOXONE HCL 0.4 MG/1 ML VIAL/CARP IV PRN; +ONDANSETRON INJ 2 MG/ML 2 ML VIAL IV PRN; +ONDANSETRON INJ 2 MG/ML 2 ML VIAL ONE; +PHENYLEPHRINE 100MCG/ML 5ML SYR IV PRN; +SODIUM CHLORIDE 0.9% 1000ML 1,000 ML IV SCH; +SUCCINYLCHOLINE CHLORIDE 20 MG/ML 10 ML VIAL IV ONE
--- NOTE | 2017-07-26 11:30 | History & Physical Bridge - [place] ---
H&P Re-Evaluation Bridge Note: I have examined the patient, reviewed the History & Physical and in the interval since the performance of the History & Physical I have noted the following changes of clinical significance: No changes noted
--- NOTE | 2017-07-26 12:23 | [facility] Operative Report ---
Operative Report Operative Date Jul 26, 2017. Pre-Operative Diagnosis Right True Vocal Fold Lesion Post-Operative Diagnosis same Procedure(s) Performed Direct Microlarygoscopy With Right True Vocal Fold Lesion Removal Surgeon Dr. Kandy Colmenares Community Service Director Surgeon(s) 0 Estimated Blood Loss 5ml Findings 1. RIGHT TRUE VOCAL FOLD NODULE INVOLVING MIDDLE 1/3 WITH ASSOCIATED LEUKOPLAKIA Specimens A. Right True Vocal Fold Biopsy I attest to the content of the Intraoperative Record and any orders documented therein. Any exceptions are noted below.
--- NOTE | 2017-07-26 12:25 | Discharge Instructions ---
Discharge Instructions Date of Service Jul 26, 2017. Admission Reason for Admission: Lesion Of Vocal Fold Discharge Discharge Diagnosis / Problem: SAME Discharge Goals Goal(s): Therapeutic intervention Activity Recommendations Activity Limitations: as noted below 1. VOICE REST FOR 72HRS 2. NO YELLING OR WHISPERING FOR 1 MONTH . Current Hospital Diet Patient's current hospital diet: Discharge Diet Recommended Diet: Regular Diet Procedures Procedures Performed: Direct Microlarygoscopy With Right True Vocal Fold Lesion Removal Pending Studies Studies pending at discharge: no Laboratory Results Lipid Panel Test 05/14/17 11:35 Range/Units Triglycerides Level 114 0-150 mg/dl Cholesterol Level 179 0-200 mg/dl HDL Cholesterol 37 mg/dl Cholesterol/HDL Ratio 4.8 LDL Cholesterol, Calculated 119 mg/dl Medical Emergencies . Who to Call and When: Medical Emergencies: If at any time you feel your situation is an emergency, please call 911 immediately. . Non-Emergent Contact Non-Emergency issues call your: Surgeon . . "Provider Documentation" section prepared by Andre Colmenares. . VTE Core Measure Inpt VTE Proph given/why not?: SCD's
--- NOTE | 2017-07-26 13:09 | OPERATIVE REPORT ---
DATE OF OPERATION: 07/26/2017 PREOPERATIVE DIAGNOSES: 1. Hoarseness. 2. 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 POSTOPERATIVE DIAGNOSES: 1. Hoarseness. 2. 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 PROCEDURE: Direct microlaryngoscopy with right true vocal fold biopsy. SURGEON: Dr. Andre Colmenares. ANESTHESIA: General endotracheal. ESTIMATED BLOOD LOSS: 5 mL. FINDINGS: Right true vocal fold nodule involving the middle third with associated leukoplakia involving the anterior two-thirds. SPECIMENS: Right true vocal fold biopsy for permanent pathological assessment. COMPLICATIONS: None. INDICATIONS FOR THE PROCEDURE: The patient is a 77-year-old nonsmoker with a several month history of hoarseness, which seems to be progressing. He was seen last month and found to have a right true vocal fold lesion/nodule involving the middle third. In a 1-month followup appointment, his laryngoscopy worsened with an increase in the size of the nodule as well as associated leukoplakia involving the anterior two-thirds of the true vocal fold. He presents for the above-mentioned procedure on an outpatient elective basis. DESCRIPTION OF PROCEDURE: After an informed consent had been obtained from the patient, the patient was wheeled to the operating room and placed on the operating table in supine position. Monitors were placed. After induction of general endotracheal anesthesia with a size 6 endotracheal tube, the table was turned 90 degrees and the patient was placed in the sniffing position. A tooth guard was placed over the maxillary dentition and the operating microscope was used to inspect the oral cavity, oropharynx, hypopharynx, and larynx. Once the larynx was visualized, a Lewy dotson was placed and stabilized on the [place] stand. A 0-degree telescope under magnification was used to take photodocumentation of the right true vocal fold lesion, which involved the anterior two-thirds of the right true vocal fold. There appeared to be a nodule involving the middle third with leukoplakia involving the middle and anterior two-thirds of the right true vocal fold. Using the operating microscope and a 400-mm lens, a micro cup forceps was used to remove the leukoplakia and nodule, which was sent off for permanent pathological assessment. A 1:1000 topical epinephrine pledget was placed over the biopsy site and left in place for 2 minutes for hemostatic purposes. The pledget was then removed. The larynx was suctioned. An LTA was administered. The operating microscope was then carefully withdrawn and the oral cavity and oropharynx were suctioned. The tooth guard was then removed from the maxillary dentition. This marked the end of the case. The patient tolerated the procedure well. There were no apparent complications. All the instrumentation was removed from the patient. The patient was extubated and transferred to recovery room in stable condition. I attest to the content of the Intraoperative Record and any orders documented therein. Any exceptions are noted below. MTDD
--- NOTE | 2017-07-26 13:11 | Anesthesia Progress Nt - [facility] ---
Anesthesia Post Op Note Date & Time Jul 26, 2017 at 13:11 Vital Signs Pain Intensity: 0 Vital Signs Past 12 Hours Date Time Temp Pulse Resp B/P (MAP) Pulse Ox O2 Delivery O2 Flow Rate FiO2 07/26/17 12:36 36.3 71 16 141/60 98 Humidified Oxygen 6 Mask 07/26/17 10:52 36.5 77 18 170/90 (116) 97 Room Air Notes Mental Status: alert / awake / arousable, participated in evaluation Pt Amnestic to Procedure: Yes Nausea / Vomiting: adequately controlled Pain: adequately controlled Airway Patency, RR, SpO2: stable & adequate BP & HR: stable & adequate Hydration State: stable & adequate Anesthetic Complications: no major complications apparent
[2017-07-26 13:20] VITALS: TEMP 36.7
[2017-07-26 13:51] VITALS: BP 148/77; PULSE 60; O2SAT 96
== END | disposition home or self-care (01) ==
LOC: X.SURG 10:37
DX: R49.0 Dysphonia (principal); J37.0 Chronic laryngitis; J38.3 Other diseases of vocal cords; I48.91 Unspecified atrial fibrillation; F32.9 Major depressive disorder, single episode, unspecified; E78.5 Hyperlipidemia, unspecified; I10 Essential (primary) hypertension; K21.9 Gastro-esophageal reflux disease without esophagitis; Z85.46 Personal history of malignant neoplasm of prostate; Z79.899 Other long term (current) drug therapy; Z79.01 Long term (current) use of anticoagulants

== ENCOUNTER → 2017-11-22 | Outpatient (CLI) | payer OTHER ==
[~2017-11-22] MED LIST changes: -APIX1TAB3 PO; -ATROPINE SULFATE 0.1 MG/ML 5ML SYR IV PRN; -DEXAMETHASONE SOD INJ 4 MG/ML VIAL ONE; -EpHEDrine SULFATE INJ 50 MG/ML AMP IV PRN; -EpINEphrine INJ 1MG/ML AMP 1 MG/ML AMP ONE; -FENTANYL CITRATE INJ 50 MCG/1 ML 2 ML VIAL IV PRN; -FENTANYL CITRATE INJ 50 MCG/1 ML 2 ML VIAL ONE; -FLUMAZENIL 0.1 MG/1 ML 10 ML VIAL IV PRN; -HYDROCODONE/ACETAMOPHEN 5/325MG TAB PO PRN; -HYDROmorphone INJ 2 MG/ML SYR/VIAL IV PRN; -LABETALOL HCL IV 5 MG/ML 20ML IV PRN; -LACTATED RINGER'S 1000ML 1,000 ML IV SCH; -LIDOCAINE HCL 2% 2 ML VIAL (20MG/ML) ONE; -LIDOCAINE/EPINEPHRINE 1% INJ 50 ML VIAL ONE; -MEPERIDINE HCL 25 MG/ML CARP IV PRN; -MIDAZOLAM HCL 1 MG/ML 2ML VIAL ONE; -NALOXONE HCL 0.4 MG/1 ML VIAL/CARP IV PRN; -ONDANSETRON INJ 2 MG/ML 2 ML VIAL IV PRN; -ONDANSETRON INJ 2 MG/ML 2 ML VIAL ONE; -PHENYLEPHRINE 100MCG/ML 5ML SYR IV PRN; -PROPOFOL IV EMULSION 10 MG/ML 20 ML VIAL IV ONE; -SODIUM CHLORIDE 0.9% 1000ML 1,000 ML IV SCH; -SUCCINYLCHOLINE CHLORIDE 20 MG/ML 10 ML VIAL IV ONE
[2017-11-22 12:17] LABS: BASO % 0.6 %; BASO ABS # 0.04 K/uL (0-0.2); EOS % 3.1 %; EOS ABS # 0.21 K/uL (0-0.5); IG# 0.01 K/uL (0.00-0.02); LYMPH % 27.5 %; LYMPH ABS # 1.84 K/uL (1.2-3.4); MEAN CELL VOLUME 91.1 fL (80-100); MEAN CORPUSCULAR HEMOGLOBIN 31.8 pg (25-34); MEAN CORPUSCULAR HGB CONC 34.9 g/dl (32-36); MONO % 8.7 %; MONO ABS # 0.58 K/uL (0.11-0.59); NEUT ABS # 4.01 K/uL (1.4-6.5); PLATELET COUNT 227 K/uL (130-400); RED CELL DISTRIBUTION WIDTH CV 12.9 % (11.5-14.5); RED CELL DISTRIBUTION WIDTH SD 42.6 fL (36.4-46.3); WHITE BLOOD COUNT 6.69 K/uL (4.8-10.8)
[2017-11-22 12:46] LABS: ALBUMIN 3.7 gm/dl (3.4-5.0); ALT/SGPT 30 U/L (12-78); BLOOD UREA NITROGEN 22 mg/dl (7-18); CALCIUM 9.2 mg/dl (8.5-10.1); CARBON DIOXIDE 27 mmol/L (21-32); CHOLESTEROL 204 mg/dl (0-200); CREATININE 1.04 mg/dl (0.60-1.40); GLUCOSE 98 mg/dl (70-99); POTASSIUM 4.2 mmol/L (3.5-5.1); SODIUM 139 mmol/L (136-145)
[2017-11-22 12:50] LABS: ALKALINE PHOSPHATASE 64 U/L (45-117); AST/SGOT 29 U/L (15-37); LDL CHOLESTEROL CALCULATED 125 mg/dl; TOTAL PROTEIN 7.3 gm/dl (6.4-8.2)
== END | disposition home or self-care (01) ==
LOC: C.LAB1850 10:58
PROVIDERS: ATTEND Nurse Practitioner Family
DX: C61 Malignant neoplasm of prostate (principal); F52.8 Other sexual dysfunction not due to a substance or known physiological condition; N39.41 Urge incontinence; N20.2 Calculus of kidney with calculus of ureter; I10 Essential (primary) hypertension; E78.5 Hyperlipidemia, unspecified; F32.9 Major depressive disorder, single episode, unspecified; K21.9 Gastro-esophageal reflux disease without esophagitis

== ENCOUNTER → 2018-02-28 | Outpatient (CLI) | payer OTHER ==
--- NOTE | 2018-02-28 10:43 | DIAGNOSTIC IMAGING REPORT ---
[facility] CLINICAL HISTORY: Prostate cancer. Nephrolithiasis. FINDINGS: 2 AP supine abdominal radiographs are compared to study dated 05/08/2017 and correlated with abdominal CT dated 05/06/2017. There is a nonobstructed abdominal bowel gas pattern. Moderate colonic fecal retention is observed. No evidence of intraperitoneal free air is seen on these supine images. Numerous surgical clips are present in the pelvis. There is no radiographic evidence of nephrolithiasis on today's examination. Phleboliths are noted in the pelvis. The skeletal structures are osteopenic. No destructive bony lesion is seen. IMPRESSION: There is no radiographic evidence of nephrolithiasis on today's examination. Electronically signed by: Daniele Catalan M.D. 02/28/2018 10:42 AM Dictated Date/Time: 02/28/2018 10:41 AM
== END | disposition home or self-care (01) ==
LOC: C.LAB1850 10:15
PROVIDERS: ATTEND Urology
DX: C66.1 Malignant neoplasm of right ureter (principal); F52.8 Other sexual dysfunction not due to a substance or known physiological condition; N20.0 Calculus of kidney; N20.1 Calculus of ureter; N39.41 Urge incontinence; R39.15 Urgency of urination